=== PATIENT | male | born 1950 | race Caucasian/White ===

== ENCOUNTER → 2016-11-02 | Outpatient (CLI) | payer MEDICARE ==
[2016-11-02 16:26] LABS: Lyme IgG/IgM Interp NEGATIVE (NEGATIVE)
== END | disposition home or self-care (01) ==
LOC: LABWHC1 10:53
PROVIDERS: ATTEND Psychiatry & Neurology Neurology
DX: R41.3 Other amnesia (principal)
CPT/HCPCS: 36415; 82306; 82607; 82746; 86618

== ENCOUNTER 2019-01-11 11:29 | Day surgery (SDC) | payer MEDICARE ==
[2019-01-09 15:24] VITALS: BMI 27.0
[~2019-01-11 11:29] MED LIST: LACTATED RINGERS 1,000 ML IV SCH
[2019-01-11 12:40] VITALS: TEMP 98.1
[2019-01-11] MEDS ORDERED: GLYCOPYRROLATE 0.2 MG/ML 2 ML VIAL ONE (13:33)
[2019-01-11] MEDS ORDERED: LIDOCAINE 1% INJ 10MG/ML (20 ML MDV) ONE (13:33)
[2019-01-11] MEDS ORDERED: PROPOFOL 10 MG/ML 20 ML VIAL IV ONE (13:33)
--- NOTE | 2019-01-11 14:04 | P.PCN ---
Date of Procedure: 01/11/19 Procedure(s) Performed: Brief history: Patient is a pleasant 68-year-old white male, scheduled for an elective upper endoscopy as well as colonoscopy as a part of evaluation of intermittent dysphagia to solids and prior history of colon polyps. Procedure performed: Esophagogastroduodenoscopy with biopsy Colonoscopy Preoperative diagnosis: Intermittent dysphagia to solids History of colon polyps Anesthesia: MAC Procedure: After informed consent was obtained from the patient was brought into the endo scopy unit and IV sedation was administered by anesthesia under continuous monitoring. Initially upper endoscopy was done. The Olympus GF 160 video endoscope was inserted inserted into the mouth and esophagus intubated without any difficulty and was gradually advanced into the stomach and duodenum and carefully examined. Biopsies were done from the duodenum to rule out celiac disease. The bulb and second part of the duodenum appeared normal. The scope was then withdrawn into the stomach adequately insufflated with air and upon careful examination the antrum had mild gastritis and biopsies were done from this area. The body, cardia and fundus appeared normal. The scope was then withdrawn into the esophagus. The GE junction was located at 40 cm to the incisors. It appeared regular with superficial erosions consistent with LA grade a reflux esophagitis. Rest of the esophagus appeared normal. no evidence of esophageal stricture. Patient tolerated the procedure well. At this time the patient continued to remain sedation. Initial digital rectal examination was normal. Olympus CF 160 video colonoscope was then inserted into the rectum and gradually advanced to the cecum without any difficulty. Careful examination was performed as the scope was gradually being withdrawn. The prep was excellent. In the base of the cecum there was a 5 mm sessile polyp that was removed by snare polypectomy. The cecum, ascending colon, transverse colon, descending colon, sigmoid colon and rectum appeared normal. Retroflexion was performed in the rectum and no lesions were noted. Patient tolerated the procedure well. Impression: 1. Upper endoscopy revealed mild antral gastritis as well as duodenitis and LA grade A reflux esophagitis 2. Colonoscopy revealed 5 mm cecal polyp status post polypectomy Recommendations: Findings of this examination were discussed with the patient as well as his family. He was advised to follow with the biopsy results. If the biopsy shows an adenoma he can have a repeat colonoscopy in 5 years.
[2019-01-11 14:24] VITALS: BP 133/78; PULSE 53; RESP 16
== END 2019-01-11 14:48 | disposition home or self-care (01) ==
LOC: ORWHC2ENDO 11:29
PROVIDERS: ATTEND Internal Medicine Gastroenterology
DX: Z12.11 Encounter for screening for malignant neoplasm of colon (principal); D12.0 Benign neoplasm of cecum; K29.50 Unspecified chronic gastritis without bleeding; K29.80 Duodenitis without bleeding; R13.10 Dysphagia, unspecified; Z86.010 Personal history of colon polyps; R41.3 Other amnesia; Z79.899 Other long term (current) drug therapy
CPT/HCPCS: 88305; 45385; 43239; J2001; J2704

== ENCOUNTER → 2019-10-16 | Outpatient (CLI) | payer MEDICARE ==
--- NOTE | 2019-10-16 15:41 | CONS ---
CONSULTATION A 69-year-old gentleman who has been evaluated in the [facility] for symptoms of dementia and possible obstructive sleep apnea-hypopnea syndrome. HISTORY OF PRESENT ILLNESS/SLEEP-WAKE EVALUATION: Patient's usual sleep schedule from 11 p.m. to 8 a.m. No problems with falling asleep. No TV in bedroom. He sleeps in different positions, but according to , he sleeps better if he sleeps up. He has mild snoring. No history of hypnagogic hallucinations, sleep paralysis or cataplexy. During the day, patient may feel tiredness and sleepiness. [place] Sleepiness Scale increased to 11. Sometimes according to his , he is sitting still, so she does not know if he is sleeping or if he is awake. 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 PAST SURGICAL HISTORY: Bilateral shoulder surgery also visual problems. SOCIAL HISTORY: Negative for using illicit drug, alcohol, or smoking. MEDICATIONS: , donepezil, multivitamin, D3 supplement. REVIEW OF SYSTEMS: Difficulties to write and read, episodes of tiredness, snoring. PHYSICAL EXAM: gentleman without distress. BP 122/76, HR 50, RR 16, height 5, 7, weight 167, body mass index 26.1, temperature 98.3, oxygen saturation at room air 96%. OROPHARYNX: Moderately low position of soft palate. NECK: Supple, no JVD. Thyroid is not palpable. LUNGS: Clear to percussion and to auscultation. Good air exchange. No wheezing or rhonchi. HEART: S1, S2 regular. No murmurs, gallops, or rubs. ABDOMEN: Soft and nontender. Bowel sounds are present. No organomegaly appreciated. EXTREMITIES: No clubbing or cyanosis. TUB MENDER: Awake, alert, and oriented X3. Cranial nerves 2 to 7 intact. There is no fasciculation or atrophy. noted. No focal deficits observed. IMPRESSION: 1. Snoring, moderately low position of soft palate, episodes of daytime sleepiness. [place] Sleepiness Scale increased to 11. Possible obstructive sleep apnea- hypopnea syndrome. 2. History of dementia with problems of writing, reading, and some daytime activities including work outside. 3. Visual problems. 4. Status post bilateral shoulder surgery. PLAN: 1. Polysomnography for evaluation of patient's breathing during sleep. 2. CPAP/BiPAP titration if sleep study confirms obstructive sleep apnea-hypopnea syndrome. 3. Preferable position during sleep on the side. 4. No driving if patient feels any sleepiness. 5. I will see patient for follow up visit to explain results of testing and following plan. Thank you very much for referring this patient for consultation. Sincerely, Hank Francois MD, PhD, FAASM Diplomat of [place] [employer] [place] [employer] [facility] [place]. MMODL / IJN: [id number] /
== END | disposition home or self-care (01) ==
LOC: SLEEP 10:26
PROVIDERS: ATTEND Internal Medicine
DX: R06.83 Snoring (principal); Z86.59 Personal history of other mental and behavioral disorders; H53.9 Unspecified visual disturbance; Z98.890 Other specified postprocedural states; Z79.899 Other long term (current) drug therapy
CPT/HCPCS: 99211

== ENCOUNTER 2021-05-08 13:22 | Emergency (ER) | payer MEDICARE ==
[2021-05-08] MEDS ORDERED: ACETAMINOPHEN TAB 500 MG TAB PO PRN (13:50)
[2021-05-08] MEDS ORDERED: ACETAMINOPHEN TAB 500 MG TAB PO STA (13:50)
--- NOTE | 2021-05-08 13:59 | ED ---
General Adult HPI - General Chief complaint: Weakness Stated complaint: Upper Respiratory Infection,Body Aches Time Seen by Provider: 05/08/21 13:33 Source: patient, RN notes reviewed Mode of arrival: ambulatory Limitations: no limitations - History of Present Illness Initial comments: Patient is a pleasant 70-year-old male presenting to the emergency Department with complaints of fatigue. Onset of symptoms was around a week ago. Patient is a poor historian. Patient admits to having cough. Patient believes he has had fevers. Patient does have nasal congestion. Patient has loss of taste and small. Patient has been vaccinated. - Related Data Home Medications Medication Instructions Recorded Confirmed Donepezil [Aricept] 10 mg PO DAILY 01/09/19 01/11/19 Ergocalciferol [Vitamin D2] 50,000 unit PO MO 01/09/19 01/11/19 Memantine [Namenda] 10 mg PO DAILY 01/09/19 01/11/19 Allergies Allergy/AdvReac Type Severity Reaction Status Date / Time No Known Allergies Allergy Verified 05/08/21 13:30 Review of Systems ROS Statement: Those systems with pertinent positive or pertinent negative responses have been documented in the HPI. ROS Other: All systems not noted in ROS Statement are negative. Constitutional: Denies: fever Eyes: Denies: eye pain ENT: Reports: congestion. Denies: ear pain Respiratory: Reports: cough Cardiovascular: Denies: chest pain Endocrine: Reports: fatigue Gastrointestinal: Denies: abdominal pain Genitourinary: Denies: dysuria Musculoskeletal: Denies: back pain Skin: Denies: rash Past Medical History Past Medical History: Memory Impairment History of Any Multi-Drug Resistant Organisms: None Reported Past Surgical History: Orthopedic Surgery Additional Past Surgical History / Comment(s): BILAT SHOULDER SX. COLONOSCOPY/EGD Past Anesthesia/Blood Transfusion Reactions: No Reported Reaction Past Psychological History: No Psychological Hx Reported Smoking Status: Never smoker Past Alcohol Use History: Occasional Past Drug Use History: None Reported - Past Family History Mother Family Medical History: No Reported History General Exam Limitations: no limitations General appearance: alert, in no apparent distress Head exam: Present: normocephalic Eye exam: Present: normal appearance Neck exam: Present: normal inspection Respiratory exam: Present: normal lung sounds bilaterally Cardiovascular Exam: Present: regular rate, normal rhythm GI/Abdominal exam: Present: soft. Absent: tenderness Extremities exam: Present: normal inspection. Absent: pedal edema, calf tenderness Neurological exam: Present: alert Psychiatric exam: Present: normal affect, normal mood Skin exam: Present: normal color Course Vital Signs 05/08/21 13:25 Temperature 99.9 F H Pulse Rate 74 Respiratory 24 Rate Blood Pressure 107/78 O2 Sat by Pulse 95 Oximetry Medical Decision Making - Medical Decision Making Patient revaluate her. Patient and family updated. Patient is candidate for monoclonal antibodies and will receive this. A jung and Family is otherwise comfortable with discharge home. - Lab Data Result diagrams: 05/08/21 14:03 05/08/21 14:03 Lab Results 05/08/21 05/08/21 05/08/21 Range/Units 14:03 14:03 14:03 WBC 12.1 H (3.8-10.6) k/uL RBC 4.89 (4.30-5.90) m/uL Hgb 16.3 (13.0-17.5) gm/dL Hct 47.9 (39.0-53.0) % MCV 97.9 (80.0-100.0) fL MCH 33.4 (25.0-35.0) pg MCHC 34.1 (31.0-37.0) g/dL RDW 12.5 (11.5-15.5) % Plt Count 243 (150-450) k/uL MPV 7.9 Neutrophils % 88 % Lymphocytes % 7 % Monocytes % 3 % Eosinophils % 0 % Basophils % 0 % Neutrophils # 10.6 H (1.3-7.7) k/uL Lymphocytes # 0.9 L (1.0-4.8) k/uL Monocytes # 0.4 (0-1.0) k/uL Eosinophils # 0.0 (0-0.7) k/uL Basophils # 0.0 (0-0.2) k/uL PT 10.6 (9.0-12.0) sec INR 1.0 (<1.2) APTT 25.0 (22.0-30.0) sec Sodium 136 L (137-145) mmol/L Potassium 4.1 (3.5-5.1) mmol/L Chloride 104 (98-107) mmol/L Carbon Dioxide 24 (22-30) mmol/L Anion Gap 8 mmol/L BUN 13 (9-20) mg/dL Creatinine 0.71 (0.66-1.25) mg/dL Est GFR (CKD-EPI)AfAm >90 (>60 ml/min/1.73 sqM) Est GFR (CKD-EPI)NonAf >90 (>60 ml/min/1.73 sqM) Glucose 126 H (74-99) mg/dL Plasma Lactic Acid Harvey (0.7-2.0) mmol/L Calcium 9.5 (8.4-10.2) mg/dL Magnesium 1.9 (1.6-2.3) mg/dL Total Bilirubin 0.8 (0.2-1.3) mg/dL AST 24 (17-59) U/L ALT 18 (4-49) U/L Alkaline Phosphatase 103 (38-126) U/L Lactate Dehydrogenase 352 (313-618) U/L C-Reactive Protein 3.8 H (<1.0) mg/dL Total Protein 6.8 (6.3-8.2) g/dL Albumin 4.2 (3.5-5.0) g/dL Coronavirus (PCR) (Not Detectd) Influenza Type A RNA (Not Detectd) Influenza Type B (PCR) (Not Detectd) 05/08/21 05/08/21 05/08/21 Range/Units 14:03 14:03 14:03 WBC (3.8-10.6) k/uL RBC (4.30-5.90) m/uL Hgb (13.0-17.5) gm/dL Hct (39.0-53.0) % MCV (80.0-100.0) fL MCH (25.0-35.0) pg MCHC (31.0-37.0) g/dL RDW (11.5-15.5) % Plt Count (150-450) k/uL MPV Neutrophils % % Lymphocytes % % Monocytes % % Eosinophils % % Basophils % % Neutrophils # (1.3-7.7) k/uL Lymphocytes # (1.0-4.8) k/uL Monocytes # (0-1.0) k/uL Eosinophils # (0-0.7) k/uL Basophils # (0-0.2) k/uL PT (9.0-12.0) sec INR (<1.2) APTT (22.0-30.0) sec Sodium (137-145) mmol/L Potassium (3.5-5.1) mmol/L Chloride (98-107) mmol/L Carbon Dioxide (22-30) mmol/L Anion Gap mmol/L BUN (9-20) mg/dL Creatinine (0.66-1.25) mg/dL Est GFR (CKD-EPI)AfAm (>60 ml/min/1.73 sqM) Est GFR (CKD-EPI)NonAf (>60 ml/min/1.73 sqM) Glucose (74-99) mg/dL Plasma Lactic Acid Harvey 1.3 (0.7-2.0) mmol/L Calcium (8.4-10.2) mg/dL Magnesium (1.6-2.3) mg/dL Total Bilirubin (0.2-1.3) mg/dL AST (17-59) U/L ALT (4-49) U/L Alkaline Phosphatase (38-126) U/L Lactate Dehydrogenase (313-618) U/L C-Reactive Protein (<1.0) mg/dL Total Protein (6.3-8.2) g/dL Albumin (3.5-5.0) g/dL Coronavirus (PCR) Detected A (Not Detectd) Influenza Type A RNA Not Detected (Not Detectd) Influenza Type B (PCR) Not Detected (Not Detectd) - Radiology Data Radiology results: image reviewed (Chest x-ray shows probable fibrosis. No focal infiltrate.) Disposition Clinical Impression: COVID-19 Disposition: HOME SELF-CARE Condition: Stable Instructions (If sedation given, give patient instructions): Coronavirus Disease 2019 (COVID-19) Additional Instructions: [id number] vitamin C, vitamin D, and zinc. Methadone at bedtime. Tylenol as he is for fever. Return for difficulty breathing, not tolerating fluids, worsening symptoms or other concerns. Is patient prescribed a controlled substance at d/c from ED?: No Referrals: Ras Ames MD [Primary Care Provider] - 1-2 days Time of Disposition: 15:07
--- NOTE | 2021-05-08 14:07 | XR ---
EXAMINATION TYPE: XR chest 1V portable DATE OF EXAM: 05/08/2021 COMPARISON: NONE HISTORY: Coughing and shortness of breath TECHNIQUE: Single AP portable frontal upright view of the chest is obtained. FINDINGS: There is reticular interstitial change bilaterally greater in the lower lungs. The cardia c silhouette size is within upper limits of normal. The osseous structures are intact. IMPRESSION: Reticular interstitial changes favor mild to moderate parenchymal fibrosis. No suspiciou s focal infiltrate clearly seen.
[2021-05-08 14:28] LABS: ALT 18 U/L (4-49); AST 24 U/L (17-59); African American GFR (CKD) >90 (>60 ml/min/1.73 sqM); Albumin 4.2 g/dL (3.5-5.0); Alkaline Phosphatase 103 U/L (38-126); Anion Gap 8 mmol/L; Blood Urea Nitrogen 13 mg/dL (9-20); C Reactive Protein 3.8 mg/dL (<1.0); Calcium 9.5 mg/dL (8.4-10.2); Carbon Dioxide 24 mmol/L (22-30); Chloride 104 mmol/L (98-107); Glucose 126 mg/dL (74-99); LDH 352 U/L (313-618); Magnesium 1.9 mg/dL (1.6-2.3); Non-African American GFR(CKD) >90 (>60 ml/min/1.73 sqM); Potassium 4.1 mmol/L (3.5-5.1); Sodium 136 mmol/L (137-145); Total Bilirubin 0.8 mg/dL (0.2-1.3); Total Protein 6.8 g/dL (6.3-8.2)
[2021-05-08 14:29] LABS: Basophils % (A) 0 %; Eosinophils % (A) 0 %; HCT 47.9 % (39.0-53.0); HGB 16.3 gm/dL (13.0-17.5); Lymphocytes # (A) 0.9 k/uL (1.0-4.8); Lymphocytes % (A) 7 %; MCH 33.4 pg (25.0-35.0); MCHC 34.1 g/dL (31.0-37.0); MCV 97.9 fL (80.0-100.0); Mean Platelet Volume 7.9; Monocytes # (A) 0.4 k/uL (0-1.0); Monocytes % (A) 3 %; Neutrophils # (A) 10.6 k/uL (1.3-7.7); Neutrophils % (A) 88 %; Platelet Count 243 k/uL (150-450); RBC 4.89 m/uL (4.30-5.90); RDW 12.5 % (11.5-15.5); WBC 12.1 k/uL (3.8-10.6)
[2021-05-08 14:31] LABS: Prothrombin Time 10.6 sec (9.0-12.0)
[2021-05-08] MEDS ORDERED: CASIRIVIMAB (REGN10933) (EUA) 600 MG, IMDEVIMAB (REGN10987) (EUA) 600 MG in SODIUM CHLO... IVPB ONE (17:30)
[2021-05-08] MEDS ORDERED: SODIUM CHLORIDE 0.9% 50 ML IVPB ONE (17:30)
[2021-05-08 18:29] VITALS: RESP 18
[2021-05-08 18:37] VITALS: BP 123/81; PULSE 69; TEMP 97.6
== END 2021-05-08 19:40 | disposition home or self-care (01) ==
LOC: EC 13:22
DX: U07.1 COVID-19 (principal)
CPT/HCPCS: 99285; 36415; 93005; 80053; 82728; 83605; 83615; 83735; 85025; 85610; 85730; 86140; 87502; 84145; 87635; 71045; Q0244

== ENCOUNTER → 2021-08-09 | Outpatient (CLI) | payer MEDICARE ==
--- NOTE | 2021-08-09 12:43 | US ---
EXAMINATION TYPE: US bladder DATE OF EXAM: 08/09/2021 COMPARISON: NONE CLINICAL HISTORY: R31.9 HEMATURIA, UNSPECIFIED. hematuria EXAM MEASUREMENTS: Post Void Residual Volume: patient unable to void Color Doppler performed to assess ureteral jets. Bilateral Jets seen: no IMPRESSION: patient unable to void
== END | disposition home or self-care (01) ==
LOC: RADUSWWP 11:58
PROVIDERS: ATTEND Family Medicine
DX: R31.9 Hematuria, unspecified (principal)
CPT/HCPCS: 76857

== ENCOUNTER 2021-08-14 16:20 | Observation (INO) | payer MEDICARE ==
--- NOTE | 2021-08-14 16:47 | ED ---
General Adult HPI - General Chief complaint: Syncope Stated complaint: passing out Time Seen by Provider: 08/14/21 16:25 Source: patient, RN notes reviewed, old records reviewed Mode of arrival: ambulatory Limitations: no limitations - History of Present Illness Initial comments: This is a 71-year-old male who presents emergency Department states he passed on the bathroom this morning then went shopping with his and then passed out while standing in line per patient states he had no chest pain palpitations difficulty breathing shortness of breath per patient denies any fever chills or cough per patient states he has not had a history of any bradycardia in the past. Patient denies any abdominal pain. Patient any recent nausea vomiting or diarrhea. Patient denies being lightheaded now. Patient states now while lying in bed he has no symptoms whatsoever. - Related Data Home Medications Medication Instructions Recorded Confirmed Donepezil [Aricept] 10 mg PO DAILY 01/09/19 08/14/21 Memantine [Namenda] 10 mg PO BID 01/09/19 08/14/21 Cholecalciferol [Vitamin D3 (25 25 mcg PO MO 05/13/21 08/14/21 Mcg = 1000 Iu)] Fish Oil/Dha/Epa [Fish Oil 1,200 1 cap PO DAILY 05/13/21 08/14/21 mg Fish Oil] Ginkgo Biloba Bisbee Extract [Ginkgo] 120 mg PO DAILY 05/13/21 08/14/21 Sertraline [Zoloft] 50 mg PO DAILY 08/14/21 08/14/21 levETIRAcetam [Keppra] 500 mg PO Q12HR 08/14/21 08/14/21 Allergies Allergy/AdvReac Type Severity Reaction Status Date / Time No Known Allergies Allergy Verified 08/14/21 17:23 Review of Systems ROS Statement: Those systems with pertinent positive or pertinent negative responses have been documented in the HPI. ROS Other: All systems not noted in ROS Statement are negative. Past Medical History Past Medical History: Memory Impairment History of Any Multi-Drug Resistant Organisms: None Reported Past Surgical History: Orthopedic Surgery Additional Past Surgical History / Comment(s): BILAT SHOULDER SX. COLONOSCOPY/EGD Past Anesthesia/Blood Transfusion Reactions: No Reported Reaction Past Psychological History: No Psychological Hx Reported Smoking Status: Never smoker Past Alcohol Use History: Occasional Past Drug Use History: None Reported - Past Family History Mother Family Medical History: No Reported History General Exam - General Exam Comments Initial Comments: GENERAL: Patient is well-developed and well-nourished. Patient is nontoxic and well- hydrated and is in no acute distress. ENT: Neck is soft and supple. No significant lymphadenopathy is noted. Oropharynx is clear. Moist mucous membranes. Neck has full range of motion without eliciting any pain. EYES: The sclera were anicteric and conjunctiva were pink and moist. Extraocular movements were intact and pupils were equal round and reactive to light. Eyelids were unremarkable. PULMONARY: Unlabored respirations. Good breath sounds bilaterally. No audible rales rhonchi or wheezing was noted. CARDIOVASCULAR: Heart rate is about 40 bpm and bradycardic ABDOMEN: Soft and nontender with normal bowel sounds. SKIN: Skin is clear with no lesions or rashes and otherwise unremarkable. NEUROLOGIC: Patient is alert and oriented x3. Cranial nerves II through XII are grossly intact. Motor and sensory are also intact. Normal speech, volume and content. Symmetrical smile. MUSCULOSKELETAL: Normal extremities with adequate strength and full range of motion. No lower extremity swelling or edema. No calf tenderness. LYMPHATICS: No significant lymphadenopathy is noted PSYCHIATRIC: Normal psychiatric evaluation. Limitations: no limitations Course Vital Signs 08/14/21 08/14/21 16:23 16:55 Temperature 98 F Pulse Rate 44 L Pulse Rate [ 47 L Right Sitting] Pulse Rate [ 54 L Right Standing] Pulse Rate [ 46 L Right Supine] Respiratory 20 18 Rate Blood Pressure 165/94 Blood Pressure 146/95 [Left Arm Sitting] Blood Pressure 130/90 [Left Arm Standing] Blood Pressure 150/91 [Left Arm Supine] O2 Sat by Pulse 96 99 Oximetry Medical Decision Making - Medical Decision Making EKG shows sinus bradycardia at 43 bpm FL interval 292 QRS is under 2 QT interval is 485 QTC is 429. Patient's EKG shows no ST segment elevation or depression. Chest x-ray shows no acute abnormality. Patient was borderline orthostatic. Patient's heart rate remained in the 40s throughout his ED stay. I spoke with sounds physician's and he agreed to accept the patient I consult cardiology - Lab Data Result diagrams: 08/14/21 16:53 08/14/21 16:53 Lab Results 08/14/21 08/14/21 08/14/21 Range/Units 16:53 16:53 16:53 WBC 6.6 (3.8-10.6) k/uL RBC 5.22 (4.30-5.90) m/uL Hgb 17.2 (13.0-17.5) gm/dL Hct 52.1 (39.0-53.0) % MCV 99.7 (80.0-100.0) fL MCH 32.9 (25.0-35.0) pg MCHC 33.0 (31.0-37.0) g/dL RDW 12.3 (11.5-15.5) % Plt Count 230 (150-450) k/uL MPV 8.0 Neutrophils % 63 % Lymphocytes % 27 % Monocytes % 6 % Eosinophils % 3 % Basophils % 1 % Neutrophils # 4.1 (1.3-7.7) k/uL Lymphocytes # 1.8 (1.0-4.8) k/uL Monocytes # 0.4 (0-1.0) k/uL Eosinophils # 0.2 (0-0.7) k/uL Basophils # 0.0 (0-0.2) k/uL PT 11.0 (9.0-12.0) sec INR 1.0 (<1.2) APTT 24.4 (22.0-30.0) sec Sodium 138 (137-145) mmol/L Potassium 4.3 (3.5-5.1) mmol/L Chloride 102 (98-107) mmol/L Carbon Dioxide 30 (22-30) mmol/L Anion Gap 6 mmol/L BUN 7 L (9-20) mg/dL Creatinine 0.79 (0.66-1.25) mg/dL Est GFR (CKD-EPI)AfAm >90 (>60 ml/min/1.73 sqM) Est GFR (CKD-EPI)NonAf >90 (>60 ml/min/1.73 sqM) Glucose 103 H (74-99) mg/dL Calcium 9.2 (8.4-10.2) mg/dL Magnesium 2.1 (1.6-2.3) mg/dL Total Bilirubin 0.8 (0.2-1.3) mg/dL AST 22 (17-59) U/L ALT 12 (4-49) U/L Alkaline Phosphatase 82 (38-126) U/L Troponin I (0.000-0.034) ng/mL Total Protein 7.5 (6.3-8.2) g/dL Albumin 4.5 (3.5-5.0) g/dL 08/14/21 Range/Units 16:53 WBC (3.8-10.6) k/uL RBC (4.30-5.90) m/uL Hgb (13.0-17.5) gm/dL Hct (39.0-53.0) % MCV (80.0-100.0) fL MCH (25.0-35.0) pg MCHC (31.0-37.0) g/dL RDW (11.5-15.5) % Plt Count (150-450) k/uL MPV Neutrophils % % Lymphocytes % % Monocytes % % Eosinophils % % Basophils % % Neutrophils # (1.3-7.7) k/uL Lymphocytes # (1.0-4.8) k/uL Monocytes # (0-1.0) k/uL Eosinophils # (0-0.7) k/uL Basophils # (0-0.2) k/uL PT (9.0-12.0) sec INR (<1.2) APTT (22.0-30.0) sec Sodium (137-145) mmol/L Potassium (3.5-5.1) mmol/L Chloride (98-107) mmol/L Carbon Dioxide (22-30) mmol/L Anion Gap mmol/L BUN (9-20) mg/dL Creatinine (0.66-1.25) mg/dL Est GFR (CKD-EPI)AfAm (>60 ml/min/1.73 sqM) Est GFR (CKD-EPI)NonAf (>60 ml/min/1.73 sqM) Glucose (74-99) mg/dL Calcium (8.4-10.2) mg/dL Magnesium (1.6-2.3) mg/dL Total Bilirubin (0.2-1.3) mg/dL AST (17-59) U/L ALT (4-49) U/L Alkaline Phosphatase (38-126) U/L Troponin I <0.012 (0.000-0.034) ng/mL Total Protein (6.3-8.2) g/dL Albumin (3.5-5.0) g/dL Disposition Clinical Impression: Bradycardia, Syncope and collapse Disposition: ADMITTED IP TO THIS HOSP Referrals: Oscar Ames MD [REFERRING] - 1-2 days Time of Disposition: 17:43
[2021-08-14 17:07] LABS: Basophils % (A) 1 %; Eosinophils # (A) 0.2 k/uL (0-0.7); Eosinophils % (A) 3 %; HCT 52.1 % (39.0-53.0); HGB 17.2 gm/dL (13.0-17.5); Lymphocytes # (A) 1.8 k/uL (1.0-4.8); Lymphocytes % (A) 27 %; MCH 32.9 pg (25.0-35.0); MCV 99.7 fL (80.0-100.0); Monocytes # (A) 0.4 k/uL (0-1.0); Monocytes % (A) 6 %; Neutrophils # (A) 4.1 k/uL (1.3-7.7); Neutrophils % (A) 63 %; Platelet Count 230 k/uL (150-450); RBC 5.22 m/uL (4.30-5.90); RDW 12.3 % (11.5-15.5); WBC 6.6 k/uL (3.8-10.6)
[2021-08-14 17:12] LABS: Potassium 4.3 mmol/L (3.5-5.1)
[2021-08-14 17:13] LABS: ALT 12 U/L (4-49); AST 22 U/L (17-59); African American GFR (CKD) >90 (>60 ml/min/1.73 sqM); Albumin 4.5 g/dL (3.5-5.0); Alkaline Phosphatase 82 U/L (38-126); Anion Gap 6 mmol/L; Blood Urea Nitrogen 7 mg/dL (9-20); Calcium 9.2 mg/dL (8.4-10.2); Carbon Dioxide 30 mmol/L (22-30); Chloride 102 mmol/L (98-107); Glucose 103 mg/dL (74-99); Magnesium 2.1 mg/dL (1.6-2.3); Non-African American GFR(CKD) >90 (>60 ml/min/1.73 sqM); Sodium 138 mmol/L (137-145); Total Bilirubin 0.8 mg/dL (0.2-1.3); Total Protein 7.5 g/dL (6.3-8.2)
[2021-08-14 17:20] LABS: Partial Thromboplastin Time 24.4 sec (22.0-30.0)
--- NOTE | 2021-08-14 17:33 | XR ---
EXAMINATION TYPE: XR chest 2V DATE OF EXAM: 08/14/2021 COMPARISON: 05/13/2021 HISTORY: Syncope TECHNIQUE: 2 views FINDINGS: There is no heart failure nor confluent pneumonic infiltrate. There is calcified granulomat a in the mediastinum. There are no hilar masses. Bony thorax is intact. There is no pleural effusion. There is some linear density in the left lower lobe. IMPRESSION: There is some mild scarring and atelectasis left lower lobe without change.. Old granulom atous disease.
[2021-08-14] MEDS ORDERED: NITROGLYCERIN SL TABS 0.4 MG TAB SUBLINGUAL PRN (17:45)
--- NOTE | 2021-08-15 03:08 | P.HPIM ---
History of Present Illness H&P Date: 08/14/21 Chief Complaint: Syncope 71-year-old male with dementia Patient unable to provide any meaningful history. Per ED notes patient has been having frequent episodes of syncope at 2 today 1 when he was in the bathroom the other one when out shopping. Patient doesn't recall these events denies any energy injury after. He denies any history of heart disease or stroke. Patient is on Keppra as wasn't able to give me a clear answer whether he has history of seizures. In the ED blood work overall was unremarkable, imaging showed no acute pathology, EKG showed no acute ST changes Patient remained bradycardic while in the ED with a heart rate in the 40s for which she is admitted for cardiology evaluation Review of Systems ROS unobtainable: due to mental status Past Medical History Past Medical History: Memory Impairment History of Any Multi-Drug Resistant Organisms: None Reported Past Surgical History: Orthopedic Surgery Additional Past Surgical History / Comment(s): BILAT SHOULDER SX. COLONOSCOPY/EGD Past Anesthesia/Blood Transfusion Reactions: No Reported Reaction Past Psychological History: No Psychological Hx Reported Smoking Status: Never smoker Past Alcohol Use History: Occasional Past Drug Use History: None Reported - Past Family History Mother Family Medical History: No Reported History Medications and Allergies Home Medications Medication Instructions Recorded Confirmed Type Donepezil [Aricept] 10 mg PO DAILY 01/09/19 08/14/21 History Memantine [Namenda] 10 mg PO BID 01/09/19 08/14/21 History Cholecalciferol [Vitamin D3 (25 25 mcg PO MO 05/13/21 08/14/21 History Mcg = 1000 Iu)] Fish Oil/Dha/Epa [Fish Oil 1,200 1 cap PO DAILY 05/13/21 08/14/21 History mg Fish Oil] Ginkgo Biloba [place] Extract [Ginkgo] 120 mg PO DAILY 05/13/21 08/14/21 History Sertraline [Zoloft] 50 mg PO DAILY 08/14/21 08/14/21 History levETIRAcetam [Keppra] 500 mg PO Q12HR 08/14/21 08/14/21 History Allergies Allergy/AdvReac Type Severity Reaction Status Date / Time No Known Allergies Allergy Verified 08/14/21 17:23 Physical Exam Vitals: Vital Signs Temp Pulse Pulse Pulse Pulse Resp BP 08/14/21 20:00 97.7 F 51 L 18 08/14/21 18:43 48 L 14 08/14/21 18:09 49 L 18 135/90 08/14/21 16:55 47 L 54 L 46 L 18 08/14/21 16:23 98 F 44 L 20 165/94 BP BP BP Pulse Ox 08/14/21 20:00 133/80 96 08/14/21 18:43 155/88 96 08/14/21 18:09 98 08/14/21 16:55 146/95 130/90 150/91 99 08/14/21 16:23 96 Intake and Output 08/14/21 08/14/21 08/15/21 14:59 22:59 06:59 Other: Voiding Method Toilet Urinal # Voids 2 Weight 74.843 kg Constitutional: No acute distress, confused pleasant, follow commands Eyes: Anicteric sclerae, moist conjunctiva, Pupils equal round reactive to light ENMT: NC/AT Oropharynx clear, no erythema, or exudates Neck: Supple, no masses, or JVD No carotid bruits No thyromegaly Lungs: Clear to auscultation Clear to percussion Normal respiratory effort, no accessory muscle use Cardiovascular: Heart regular in rate and rhythm, No murmurs, gallops, or rubs No peripheral edema Abdominal: Soft Nontender, no guarding, rebound or rigidity Abdomen moving with respiration Normoactive bowel sounds No hepatomegaly, No splenomegaly No palpable mass No abdominal wall hernia noted Skin: Normal temperature, tone, texture, turgor No induration No subcutaneous nodules No rash, lesions No ulcers Extremities: No digital cyanosis No clubbing Pedal pulses intact and symmetrical Radial pulses intact and symmetrical No calf tenderness Psychiatric: Alert and oriented to person only Neuro Muscles Strength 5/5 in all 4 extremities Sensation to light touch grossly present throughout Cranial nerves II-XII grossly intact No focal sensory deficits Lymphatics: no palpable cervical or supraclavicular , or inguinal lymph nodes Results CBC & Chem 7: 08/14/21 16:53 08/14/21 16:53 Labs: Abnormal Lab Results - Last 24 Hours (Table) 08/14/21 Range/Units 16:53 BUN 7 L (9-20) mg/dL Glucose 103 H (74-99) mg/dL Assessment and Plan Assessment: Symptomatic bradycardia Multiple syncopal episodes Cardiac monitoring IV fluid hydration normal saline Avoid AV duglas maria de jesus agent Cardiology evaluation Follow-up labs in the morning Fall precautions CODE STATUS patient was able to discuss DVT prophylaxis heparin subcu 3 times a day Anticipated length of stay less than 2 midnights
[2021-08-15] MEDS: MEMANTINE 10 MG TAB PO SCH ×3 (03:12→19:54)
[2021-08-15] MEDS: levETIRAcetam 500 MG TAB PO SCH ×3 (03:12→19:54)
[2021-08-15] MEDS: SODIUM CHLORIDE 0.9% 1,000 ML IV SCH ×2 (08:32→12:04)
[2021-08-15] MEDS: SERTRALINE 50 MG TAB PO SCH (08:36)
[2021-08-15] MEDS: HEPARIN SODIUM,PORCINE/PF 5,000 UNIT/0.5 ML SYRINGE SQ SCH ×2 (08:36→19:54)
[2021-08-15] MEDS ORDERED: ASPIRIN 325 MG TAB PO SCH (09:00)
[2021-08-15] MEDS ORDERED: DONEPEZIL 10 MG TAB PO SCH (09:00)
[2021-08-15] MEDS ORDERED: RX INFO: IV CONTRAST WAS GIVEN 1 EACH MISC MISCELLANE PRN (10:17)
--- NOTE | 2021-08-15 10:36 | CONS ---
CONSULTATION Emeterio Anderson is a 71-year-old gentleman from whom I cannot obtain any meaningful history. This gentleman has probably underlying dementia. He was admitted to the hospital with a question of having some low heart rate. He presented to the emergency room yesterday evening after having had a near-syncopal episode in the bathroom and then went shopping with his and was standing in the line and he felt difficulty breathing. All these symptoms are in the chart, but on questioning, patient is unable to conform anything. He has a heart rate of about 45 beats per minute, the lowest that I saw, and the heart rate now is 72, but he does have underlying right bundle suggesting that he has significant conduction system disease. He is asymptomatic at the time of my evaluation, resting comfortably without any chest pain, shortness of breath or palpitations. Past medical history: significant amount of dementia, and patient is absolutely confused. He may have some underlying seizure disorder as well. No documented evidence of any CAD, hypertension, myocardial infarction or CVA. Medications at home include Keppra, Namenda, Aricept and some fish oil. On examination, blood pressure is 130/70. Pulse rate is about 70 per minute, regular. HEENT unremarkable. Fundus was not examined by me. Neck is supple. No JVD. I do not hear a carotid bruit. Heart exam reveals S1, S2 with a short systolic murmur. Lungs reveal diminished air entry. Abdomen is soft. Lower extremities reveal normal pulses, no edema. Central nervous system does not reveal focal motor deficits, but I did not do a detailed examination. IMPRESSION: 1. Question of near-syncope in a patient with right bundle branch block pattern, sinus mechanism, but no documented evidence of syncope or significant bradycardia here. 2. Severe dementia. 3. Probable underlying seizure disorder. RECOMMENDATIONS: I am recommending that we check thyroid function tests, continue telemetry monitoring, obtain echocardiogram and seek further input from Neurology as well. Based on his clinical picture and telemetry monitoring, we will make further recommendations. Discussed my thoughts in detail with the patient. MMFLOL / IJN: [id number] /
--- NOTE | 2021-08-15 13:19 | P.PN ---
Subjective Progress Note Date: 08/15/21 (delayed charting seen at 0945) Principal diagnosis: syncope Patient is a 71-year-old gentleman with dementia, prior history of COVID, and probable seizure disorder who presented after 2 syncopal episodes. In the ER he was found to be bradycardic. Remainder of his laboratory analysis were within normal limits. TSH and troponins were normal. EKG demonstrated a right bundle branch block with sinus bradycardia. Is admitted for further monitoring. Cardiology was consulted. Patient seen and examined at bedside. Unfortunately no family is present and nursing has not been able to get a hold of the . He is alert and oriented to self only. He is unsure why he is in hospital or what happened. All meaningful information was gathered from thorough record review of hospitalization in May 2021 and this ER visit. General: non toxic, no distress, appears at stated age Derm: warm, dry Head: atraumatic, normocephalic, symmetric Eyes: EOMI, no lid lag, anicteric sclera Mouth: no lip lesion, mucus membranes moist Cardiovascular: S1S2 reg, no murmur, positive posterior tibial pulse bilateral, Lungs: CTA bilateral, no rhonchi, no rales , no accessory muscle use Abdominal: soft, nontender to palpation, no guarding, no appreciable organomegaly Ext: no gross muscle atrophy, no edema, no contractures Neuro: CN II-XI grossly intact, no focal neuro deficits Psych: Alert, oriented to self only. Initially thought his is in the room and that he was at home, appropriate affect Assessment/plan: Syncope Bradycardia with right bundle branch block -Continue with telemetry -Cardiology recommendations -Echocardiogram in a.m. -Hold Namenda and Aricept -Check CT head -seizure precautions -keppra level Dementia -Safe and supportive environment -Hold Aricept as it is contraindicated with arrhythmia. Also hold Namenda. Probable seizure disorder -Kera DVT prophylaxis: early ambulation Discussed with: patient, nursing Anticipated discharge: in AM Anticipated discharge place: home A total of 35 minutes was spent on the care of this complex patient more than 50% of the time was spent in counseling and care coordination. Objective - Vital Signs Vital signs: Vital Signs Temp 98.1 F 08/15/21 08:33 Pulse 51 L 08/15/21 11:04 Resp 20 04/17/22 11:04 BP 131/80 08/15/21 11:04 Pulse Ox 99 08/15/21 11:04 Intake & Output 08/14/21 08/15/21 08/15/21 18:59 06:59 18:59 Intake Total 1000 Output Total 400 Balance 1000 -400 Weight 74.843 kg 74.843 kg Intake: Oral 1000 Output: Urine 400 Other: Voiding Method Toilet Toilet Urinal Urinal # Voids 2 1 # Bowel Movements 1 1 - Labs CBC & Chem 7: 08/14/21 16:53 08/14/21 16:53 Labs: Abnormal Lab Results - Last 24 Hours (Table) 08/14/21 Range/Units 16:53 BUN 7 L (9-20) mg/dL Glucose 103 H (74-99) mg/dL
--- NOTE | 2021-08-15 14:06 | CT ---
EXAMINATION TYPE: CT brain wo con DATE OF EXAM: 08/15/2021 COMPARISON: 05/13/2021 HISTORY: Syncope, Fall CT DLP: 1099.4 mGycm Automated exposure control for dose reduction was used. There is cerebral cortical atrophy. There is enlargement of the ventricles. There is no mass effect o r midline shift. There is no sign of intracranial hemorrhage. The calvarium is intact. There is tu l aeration of the mastoid sinuses. IMPRESSION: Cerebral atrophy and moderate hydrocephalus. No acute abnormality. No change compared to old exam. There is clearing of the right maxillary sinusitis compared to old exam.
[2021-08-15 16:37] LABS: Chol/HDL Ratio 4.36 Ratio; LDL Cholesterol,Calculated 156.2 mg/dL (0.0-131.0); VLDL Calculation 18.68 mg/dL (5.00-40.00)
[2021-08-16] MEDS: SODIUM CHLORIDE 0.9% 1,000 ML IV SCH ×2 (01:32→15:39)
[2021-08-16] MEDS: levETIRAcetam 500 MG TAB PO SCH ×2 (07:59→20:22)
[2021-08-16] MEDS: MEMANTINE 10 MG TAB PO SCH ×2 (07:59→20:22)
[2021-08-16] MEDS: SERTRALINE 50 MG TAB PO SCH (07:59)
[2021-08-16] MEDS: HEPARIN SODIUM,PORCINE/PF 5,000 UNIT/0.5 ML SYRINGE SQ SCH ×2 (07:59→20:22)
--- NOTE | 2021-08-16 09:51 | ECHOF ---
Referral Reason:Bradycardia, eval LV FX MEASUREMENTS -------- HEIGHT: 170.2 cm WEIGHT: 74.8 kg BP: 125/79 RVIDd: 2.7 cm (< 3.3) IVSd: 1.1 cm (0.6 - 1.1) LVIDd: 4.4 cm (3.9 - 5.3) LVPWd: 1.0 cm (0.6 - 1.1) IVSs: 2.0 cm LVIDs: 2.5 cm LVPWs: 1.4 cm LA Diam: 2.5 cm (2.7 - 3.8) Ao Diam: 4.0 cm (2.0 - 3.7) AV Cusp: 2.1 cm (1.5 - 2.6) MV EXCURSION: 17.918 mm (> 18.000) MV EF SLOPE: 54 mm/s (70 - 150) EPSS: 0.5 cm MV E Deepak: 0.74 m/s MV DecT: 120 ms MV A Deepak: 0.55 m/s MV E/A Ratio: 1.34 RAP: 5.00 mmHg RVSP: 24.64 mmHg FINDINGS -------- Resting bradycardia (HR<60bpm). This was a technically adequate study. The left ventricular size is normal. There is borderline concentric left ventricular hypertrophy. Overall left ventricular systolic function is normal with, an EF between 60 - 65 %. The right ventricle is normal in size. The left atrium is normal in size. The right atrium is normal in size. Interatrial and interventricular septum intact. There is mild aortic valve sclerosis. Possible bicuspid AOV The mitral valve is normal. Mild tricuspid regurgitation present. Right ventricular systolic pressure is normal at < 35 mmHg. The pulmonic valve is normal. The aortic root is dilated measuring 4.0cm. IVC Not well visulized. There is no pericardial effusion. CONCLUSIONS -------- 1. Resting bradycardia (HR<60bpm). 2. The left ventricular size is normal. 3. There is borderline concentric left ventricular hypertrophy. 4. Overall left ventricular systolic function is normal with, an EF between 60 - 65 %. 5. There is mild aortic valve sclerosis. 6. Possible bicuspid AOV 7. Mild tricuspid regurgitation present. 8. The aortic root is dilated measuring 4.0cm. 9. There is no pericardial effusion. FUSING MACHINE OPERATOR: Jennifer Faustin RDCS
[2021-08-16 13:04] LABS: Glucose,Whole Blood 126 mg/dL (75-99)
--- NOTE | 2021-08-16 16:48 | P.PN ---
Subjective Progress Note Date: 08/16/21 (delayed charting seen at 0930) Principal diagnosis: syncope Patient is a 71-year-old gentleman with dementia, prior history of COVID, and probable seizure disorder who presented after 2 syncopal episodes. In the ER he was found to be bradycardic. Remainder of his laboratory analysis were within normal limits. TSH and troponins were normal. EKG demonstrated a right bundle branch block with sinus bradycardia. Is admitted for further monitoring. Cardiology was consulted. Patient seen and examined at bedside no family present. Patient without complaints, sleeping denies chest pain, shortness of breath, nausea. General: non toxic, no distress, appears at stated age Derm: warm, dry Head: atraumatic, normocephalic, symmetric Eyes: EOMI, no lid lag, anicteric sclera Mouth: no lip lesion, mucus membranes moist Cardiovascular: S1S2 reg, no murmur, positive posterior tibial pulse bilateral, Lungs: CTA bilateral, no rhonchi, no rales , no accessory muscle use Abdominal: soft, nontender to palpation, no guarding, no appreciable organomegaly Ext: no gross muscle atrophy, no edema, no contractures Neuro: CN II-XI grossly intact, no focal neuro deficits Psych: Alert, oriented to self only. Initially thought his is in the room and that he was at home, appropriate affect Assessment/plan: Syncope Bradycardia with right bundle branch block -Continue with telemetry -Cardiology recommendations -Echocardiogram without abnormality - nursing to recheck orthostatic vital signs - walk patient to assess for chronotropic competency -Hold Aricept -CT head negative -seizure precautions -keppra level pending Dementia -Safe and supportive environment -Hold Aricept as it is contraindicated with arrhythmia seizure disorder -Keppra home in AM if no recurrent episode. Patient with what sounds like absence seizures will monitor for 1 additional day. DVT prophylaxis: early ambulation Discussed with: patient, nursing Anticipated discharge: in AM Anticipated discharge place: home A total of 35 minutes was spent on the care of this complex patient more than 50% of the time was spent in counseling and care coordination. Objective - Vital Signs Vital signs: Vital Signs Temp 98.5 F 08/16/21 16:29 Pulse 64 08/16/21 16:29 Resp 16 08/16/21 16:29 BP 106/63 08/16/21 16:29 Pulse Ox 96 08/16/21 16:29 Intake & Output 08/15/21 08/16/21 08/16/21 18:59 06:59 18:59 Intake Total 1450 Output Total 900 700 Balance -900 750 Intake: IV 10 Invasive Line 2 10 Oral 1440 Output: Urine 900 700 Other: Voiding Method Urinal Urinal Urinal Incontinent # Voids 1 1 1 # Bowel Movements 1 1 - Labs CBC & Chem 7: 08/14/21 16:53 08/14/21 16:53 Labs: Abnormal Lab Results - Last 24 Hours (Table) 08/16/21 Range/Units 13:01 POC Glucose (mg/dL) 126 H (75-99) mg/dL
[2021-08-16 17:39] VITALS: BMI 25.8
[2021-08-17] MEDS: SODIUM CHLORIDE 0.9% 1,000 ML IV SCH (06:07)
[2021-08-17] MEDS: SERTRALINE 50 MG TAB PO SCH (08:31)
[2021-08-17] MEDS: levETIRAcetam 500 MG TAB PO SCH ×2 (08:31→20:52)
[2021-08-17] MEDS: HEPARIN SODIUM,PORCINE/PF 5,000 UNIT/0.5 ML SYRINGE SQ SCH ×2 (08:31→20:52)
[2021-08-17] MEDS: MEMANTINE 10 MG TAB PO SCH ×2 (08:31→20:52)
--- NOTE | 2021-08-17 14:41 | P.PN ---
Subjective Principal diagnosis: Syncope Chart was reviewed patient was seen and examined. Patient history of seizures and dementia presenting with 2 syncopal episodes. Found to be bradycardic with sinus bradycardia. He is admitted for regulation of the syncopal episodes. Today patient is awake and alert following commands participating in conversation. He is not oriented to time and date. He currently reports no discomfort no distress no GI respiratory complaints no headache or vision changes. Objective - Vital Signs Vital signs: Vital Signs Temp 98.3 F 08/17/21 04:00 Pulse 52 L 08/17/21 12:20 Resp 16 08/17/21 12:20 BP 116/72 08/17/21 12:20 Pulse Ox 96 08/17/21 12:20 Intake & Output 08/16/21 08/17/21 08/17/21 18:59 06:59 18:59 Intake Total 1690 2680 Output Total 700 500 Balance 990 2180 Weight 74.843 kg Intake: IV 10 Invasive Line 2 10 Oral 1680 2680 Output: Urine 700 500 Other: Voiding Method Urinal Urinal # Voids 1 1 # Bowel Movements 1 1 - Exam Patient is awake alert not in distress orientated 0, however he is able to a nswer my questions appropriately and to follow commands appropriately Cardiovascular: S1S2 reg, no murmur, positive dorsalis pedis pulses Lungs: CTA bilateral, no rhonchi, no rales , no accessory muscle use Abdominal: soft, nontender to palpation, no guarding, no appreciable organomegaly Ext: no gross muscle atrophy, no edema, no contractures Neuro: CN II-XI grossly intact, no focal neuro deficits, he has some mild asterixis, extraocular movements are intact, no nystagmus - Labs CBC & Chem 7: 08/14/21 16:53 08/14/21 16:53 Assessment and Plan Plan: #Syncope Cardiogenic versus seizures He does have a history of seizures in his on Keppra EKG notable for bradycardia with right bundle bunch block TSH is normal, echocardiogram without acute Cardiology consulted, keep on telemetry Cardiology recommended neurological auscultation Obtain Keppra level and ammonia level #Bradycardia with right bundle branch block -Continue with telemetry -Cardiology recommendations -Echocardiogram without abnormality - nursing to recheck orthostatic vital signs - walk patient to assess for chronotropic competency -Hold Aricept #Dementia with behavioral disturbances -Safe and supportive environment -Hold Aricept as it is contraindicated with arrhythmia Check ammonia #seizure disorder -Keppra DVT prophylaxis: Subcu heparin
[2021-08-17] MEDS: THIAMINE 100 MG TAB PO SCH (16:28)
--- NOTE | 2021-08-17 17:37 | P.CNNES ---
History of Present Illness Consult date: 08/17/21 Requesting physician: Angelo Stone Reason for Consult: Syncope History of Present Illness: Patient is a 71-year-old male with history of significant Alzheimer's dementia, was brought to the hospital by patient's on 08/14/2021 for a syncopal spell. Patient not able to provide any history because of his eventual. Patient's was present. She states that on the day of admission at home patient went to the bathroom, and apparently passed out in the bathroom. When she went in, he was in a blank stare. He was out for short period of time. Later during the day, patient and his went to groceries. There was standing at the checkout line, and she was in front of him, when he suddenly leaned on her back. He then started falling, but fortunately another person standing behind, grabbed him and supported him. She shook him a couple times and he did came to. No convulsive activity was noted. There was no chest pain, palpitations or difficulty breathing reported. No fever or chills or cough. Patient's states that he has passed out couple times in May when he was admitted to [facility]. Patient is also taking seizure medication. Patient's states that he had a sleep study done and was found to have silent seizures all night, therefore was placed on Keppra by Dr. Horne. I saw the sleep study performed on 10/22/2019, which revealed no significant respiratory abnormalities documented during the sleep study. Bradycardia with some ST changes without previous history of coronary artery disease. Short latency to REM sleep indicated possibility of narcolepsy. Patient's EKG ran between 32 and 43 significant bradycardia. Patient's states that now he has started seeing Dr. Gamez nurse practitioner. 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 He is in the process of getting evaluation by the neurosurgeon Dr. Darwin Grover with [facility] in [facility]. Patient's states that patient does have problem with gait for last 1 year. He shuffles and is getting slower. No major concerns about bowel or bladder issues reported by patient's . Patient's home medications include Namenda 10 mg twice a day, Aricept 10 mg daily (on for last 8 years), ginkgo biloba, fish oil, vitamin D, Zoloft 50 mg daily and Keppra 500 mg every 12 hours. Patient denies any history of hypertension diabetes tobacco or alcohol use. Review of Systems Patient denies headache any strokelike symptoms. No chest pain or abdominal pain nausea vomiting diarrhea. All other review of systems reviewed except as mentioned in HPI. Past Medical History Past Medical History: Memory Impairment History of Any Multi-Drug Resistant Organisms: None Reported Past Surgical History: Orthopedic Surgery Additional Past Surgical History / Comment(s): BILAT SHOULDER SX. COLONOSCOPY/EGD Past Anesthesia/Blood Transfusion Reactions: No Reported Reaction Past Psychological History: No Psychological Hx Reported Smoking Status: Never smoker Past Alcohol Use History: Occasional Past Drug Use History: None Reported - Past Family History Mother Family Medical History: No Reported History Medications and Allergies Home Medications Medication Instructions Recorded Confirmed Type Donepezil [Aricept] 10 mg PO DAILY 01/09/19 08/14/21 History Memantine [Namenda] 10 mg PO BID 01/09/19 08/14/21 History Cholecalciferol [Vitamin D3 (25 25 mcg PO MO 05/13/21 08/14/21 History Mcg = 1000 Iu)] Fish Oil/Dha/Epa [Fish Oil 1,200 1 cap PO DAILY 05/13/21 08/14/21 History mg Fish Oil] Ginkgo Biloba [place] Extract [Ginkgo] 120 mg PO DAILY 05/13/21 08/14/21 History Sertraline [Zoloft] 50 mg PO DAILY 08/14/21 08/14/21 History levETIRAcetam [Keppra] 500 mg PO Q12HR 08/14/21 08/14/21 History Allergies Allergy/AdvReac Type Severity Reaction Status Date / Time No Known Allergies Allergy Verified 08/14/21 17:23 Physical Examination - Vital Signs Vital Signs: Vital Signs Temp Pulse Pulse Resp BP BP BP 08/17/21 04:00 98.3 F 50 L 16 08/17/21 02:00 57 L 08/17/21 00:00 97.2 F L 57 L 16 08/16/21 20:00 98.6 F 53 L 16 08/16/21 16:29 98.5 F 64 16 08/16/21 12:18 98.0 F 54 L 18 119/73 110/78 117/74 BP Pulse Ox 08/17/21 04:00 109/60 95 08/17/21 02:00 08/17/21 00:00 110/64 96 08/16/21 20:00 110/74 96 08/16/21 16:29 106/63 96 08/16/21 12:18 96 Intake and Output 08/16/21 08/17/21 08/17/21 22:59 06:59 14:59 Intake Total 840 2440 Output Total 250 300 Balance 590 2140 Intake: Oral 840 2440 Output: Urine 250 300 Other: Voiding Method Urinal Urinal # Voids 1 # Bowel Movements 1 Weight 74.843 kg Patient is an elderly male, in no acute distress. Patient is alert awake, only oriented to himself. He perseverates on 20. Patient could not tell his age, states he is 22 years of age. He states that he is his for 20 years. He is not able to tell name of his or how many kids he has. He states his is 20 years old. However he was able to tell that his son Monty has two sons (patient's grandsons) and his daughter Christine does not have any children at this time correctly. Patient has no clue regarding the current month or the year. He could not tell what city and state he lives in. Patient was able to name simple objects like ear, pen, however not able to name glasses, states "eye". Patient can repeat somewhat better. Some paraphasic errors. Attention, concentration and fund of knowledge is severely limited. Palmomental reflex absent, however positive visuospatial apraxia. On cranial examination, pupils are equal, round and reacting to light, visual borjas are full on confrontation, extraocular muscles are intact with no nystagmus. Face is symmetric, tongue protrudes to the midline. Palatal elevation and sensation normal, hearing is slightly decreased and shoulder shrug normal, facial sensation normal. Shoulder shrug normal. On muscle strength testing, there is no pronator drift and the strength is n ormal in arms and legs distally and proximally. Deep tendon reflexes are symmetric 2+ and plantars downgoing. Sensory to touch is equal, although difficult to assess because of his comprehension. Cerebellar function showed no ataxia for [id number] testing. Tone and bulk of muscles normal. Gait deferred. On general examination, there is no carotid bruit or murmur, S1-S2 audible. Abdomen is soft nontender. No organomegaly, bowel sounds present. Chest is clear. Peripheral pulses are present. No edema. Results - Laboratory Findings CBC and BMP: 08/14/21 16:53 08/14/21 16:53 Abnormal Lab Findings: Abnormal Labs 08/14/21 08/15/21 08/16/21 16:53 06:23 13:01 BUN 7 L Glucose 103 H POC Glucose (mg/dL) 126 H Cholesterol 227.00 H LDL Cholesterol, Calc 156.2 H Assessment and Plan Assessment: * Syncopal spells, likely cardiac related, perhaps due to bradycardia. Orthostatics checked were negative. Seizures less likely, as both events occurred while he was standing. * Alzheimer's dementia, moderate to severe degree. * Prominent ventricles, rule out NPH. * Hypertension Plan: * Telemetry monitoring so far showing sinus rhythm, sinus bradycardia is in high 40s. Orthostatics are negative. Suggest event monitor at the time of discharge or loop recorder to evaluate for arrhythmia. * Agree with stopping donepezil, as it has to be used with caution in patients with heart block. Continue Namenda for dementia. * Check EEG to evaluate for epileptiform activity. * Patient has prominent ventricles. He does have significant amount of cortical atrophy as well. Patient is in the process of seeing a neurosurgeon Dr. Darwin Grover as outpatient for possible ventriculoperitoneal shunting. He does not appear to be a great candidate for shunting because of advanced dementia. * 2-D echo revealed resting bradycardia, left ventricular size is normal. Borderline concentric LVH. EF is between 60-65%. Mild aortic valve sclerosis. Possible bicuspid aortic valve. The aortic root is dilated measuring 4.0 cm. We will defer to cardiology regarding aortic root. * CT head showed cerebral atrophy and moderate hydrocephalus. No acute abnormality. No change compared to old exam. * Lipid panel with cholesterol 227, LDL 156, HDL 52 and triglycerides and 3.4. TSH 1.17. * Keppra level is 11.4 (3-60) * Discussed with patient's . Neurology will follow. Thank you for the consult.
--- NOTE | 2021-08-17 19:46 | EEG ---
ELECTROENCEPHALOGRAM REPORT DATE OF SERVICE: 08/17/2021 PREAMBLE: This is a 71-year-old male with syncope versus seizure. This study is performed to evaluate for any epileptiform activity. EEG FINDINGS: This is 21-channel digital EEG recorded with video competent, utilizing 10/20 international system with referential and bipolar montages. The recording starts and continues with presence of low- to moderate-amplitude mixed frequencies of theta, with lower frequency delta activity seen in bihemispheric region. Background does not seem to be reactive to eye opening and closing. Photic driving response was not seen. Different stages of sleep were not clearly seen. No focal or generalized epileptiform activity was seen. IMPRESSION: This is an abnormal EEG due to background slowing of at least moderate degree. This is suggestive of generalized cerebral dysfunction as can be seen with encephalopathy of metabolic, vascular or degenerative causes. No epileptiform activity was seen. MMODL / IJN: [id number] /
[2021-08-18 09:09] LABS: HCT 46.8 % (39.0-53.0); HGB 15.9 gm/dL (13.0-17.5); MCH 34.4 pg (25.0-35.0); Mean Platelet Volume 7.7; Platelet Count 191 k/uL (150-450); RBC 4.63 m/uL (4.30-5.90); RDW 13.1 % (11.5-15.5); WBC 5.1 k/uL (3.8-10.6)
[2021-08-18] MEDS: MEMANTINE 10 MG TAB PO SCH (09:10)
[2021-08-18] MEDS: THIAMINE 100 MG TAB PO SCH (09:10)
[2021-08-18] MEDS: SERTRALINE 50 MG TAB PO SCH (09:10)
[2021-08-18] MEDS: levETIRAcetam 500 MG TAB PO SCH (09:10)
[2021-08-18] MEDS: HEPARIN SODIUM,PORCINE/PF 5,000 UNIT/0.5 ML SYRINGE SQ SCH (09:10)
[2021-08-18 09:22] LABS: ALT 13 U/L (4-49); AST 21 U/L (17-59); African American GFR (CKD) >90 (>60 ml/min/1.73 sqM); Albumin 3.6 g/dL (3.5-5.0); Alkaline Phosphatase 57 U/L (38-126); Anion Gap 2 mmol/L; Blood Urea Nitrogen 13 mg/dL (9-20); Calcium 8.9 mg/dL (8.4-10.2); Carbon Dioxide 30 mmol/L (22-30); Chloride 105 mmol/L (98-107); Glucose 118 mg/dL (74-99); Non-African American GFR(CKD) >90 (>60 ml/min/1.73 sqM); Potassium 3.9 mmol/L (3.5-5.1); Sodium 137 mmol/L (137-145); Total Bilirubin 0.6 mg/dL (0.2-1.3); Total Protein 6.1 g/dL (6.3-8.2)
--- NOTE | 2021-08-18 15:03 | P.DS ---
Providers Date of admission: 08/14/21 17:45 Expected date of discharge: 08/18/21 Attending physician: Megha Larsen DO Consults: 08/17/21 09:19 Consult Physician Routine Consulting Provider: Devonte Koroma Consult Reason/Comments: Syncope Do you want consulting provider notified?: Yes Primary care physician: Ras Quintanilla [facility] Course: Patient is a 71-year-old gentleman with dementia, prior history of COVID, and probable seizure disorder who presented after 2 syncopal episodes. In the ER he was found to be bradycardic. Remainder of his laboratory analysis were within normal limits. TSH and troponins were normal. EKG demonstrated a right bundle branch block with sinus bradycardia. Is admitted for further monitoring. Cardiology was consulted. Physical examination: General: non toxic, no distress, appears at stated age. Patient is oriented to himself Derm: warm, dry Head: atraumatic, normocephalic, symmetric Eyes: EOMI, no lid lag, anicteric sclera Mouth: no lip lesion, mucus membranes moist Cardiovascular: S1S2 reg, no murmur, positive posterior tibial pulse bilateral, Lungs: CTA bilateral, no rhonchi, no rales , no accessory muscle use Abdominal: soft, nontender to palpation, no guarding, no appreciable organomegaly Ext: no gross muscle atrophy, no edema, no contractures Neuro: CN II-XI grossly intact, no focal neuro deficits Psych: Alert, oriented to self only. Initially thought his is in the room and that he was at home, appropriate affect Hospital course: Syncope Bradycardia with right bundle branch block -Continue with telemetry -Cardiology cleared the patient for discharge. Outpatient event monitor was set up on discharge -Echocardiogram without abnormality -Negative orthostatic -Hold Aricept since Kinko's arrhythmia -CT head negative -seizure precautions -keppra level therapeutic -Cardiology cleared the patient for discharge Dementia -Safe and supportive environment -Holding Aricept as it is contraindicated with arrhythmia seizure disorder -Keppra Patient Condition at Discharge: Stable Plan - Discharge Summary Discharge Rx Participant: Yes New Discharge Prescriptions: Continue Memantine [Namenda] 10 mg PO BID Ginkgo Biloba [place] Extract [Ginkgo] 120 mg PO DAILY Sertraline [Zoloft] 50 mg PO DAILY levETIRAcetam [Keppra] 500 mg PO Q12HR Discontinued Donepezil [Aricept] 10 mg PO DAILY No Action Fish Oil/Dha/Epa [Fish Oil 1,200 mg Fish Oil] 1 cap PO DAILY Cholecalciferol [Vitamin D3 (25 Mcg = 1000 Iu)] 25 mcg PO MO Discharge Medication List Memantine [Namenda] 10 mg PO BID 01/09/19 [History] Cholecalciferol [Vitamin D3 (25 Mcg = 1000 Iu)] 25 mcg PO MO 05/13/21 [History] Fish Oil/Dha/Epa [Fish Oil 1,200 mg Fish Oil] 1 cap PO DAILY 05/13/21 [History] Ginkgo Biloba [place] Extract [Ginkgo] 120 mg PO DAILY 05/13/21 [History] Sertraline [Zoloft] 50 mg PO DAILY 08/14/21 [History] levETIRAcetam [Keppra] 500 mg PO Q12HR 08/14/21 [History] Follow up Appointment(s)/Referral(s): Gopi Bowman MD [STAFF PHYSICIAN] - 1 Week Ras Ames MD [Primary Care Provider] - 1 Week Patient Instructions/Handouts: Epilepsy (DC), Nonepileptic Seizures (DC) Discharge Disposition: HOME SELF-CARE
[2021-08-18 16:29] VITALS: BP 110/74; PULSE 54; RESP 15; TEMP 98
--- NOTE | 2021-08-18 18:25 | P.PN ---
Subjective Progress Note Date: 08/18/21 Patient feeling fine. Offers no complaints. Patient's was also present in the room. Telemetry monitoring only showing heart rate in the 50s. Occasionally may go down to 47. Objective - Vital Signs Vital signs: Vital Signs Temp 98.1 F 08/18/21 08:00 Pulse 53 L 08/18/21 11:57 Resp 17 08/18/21 11:57 BP 117/70 08/18/21 11:57 Pulse Ox 96 08/18/21 11:57 Intake & Output 08/17/21 08/18/21 08/18/21 18:59 06:59 18:59 Intake Total 2920 480 Output Total 700 Balance 2220 480 Intake: Oral 2920 480 Output: Urine 700 Other: Voiding Method Urinal # Voids 2 # Bowel Movements 1 - Exam Examination remains unchanged. - Labs CBC & Chem 7: 08/18/21 08:26 08/18/21 08:26 Labs: Abnormal Lab Results - Last 24 Hours (Table) 08/18/21 08/18/21 Range/Units 08:26 08:26 MCV 101.0 H (80.0-100.0) fL Glucose 118 H (74-99) mg/dL Total Protein 6.1 L (6.3-8.2) g/dL Assessment and Plan Assessment: * Syncopal spells, likely cardiac related, perhaps due to bradycardia. Orthostatics checked were negative. Seizures less likely, as both events occurred while he was standing. * Alzheimer's dementia, moderate to severe degree. * Prominent ventricles, rule out NPH. Probably from advanced dementia. Doubt NPH. * Hypertension Plan: * Telemetry monitoring so far showing sinus rhythm, sinus bradycardia is in high 40s. Orthostatics are negative. Recommend event monitor to evaluate for arrhythmia. * Agree with stopping donepezil, as it has to be used with caution in patients with heart block. Continue Namenda for dementia. * EEG was completed, which revealed background slowing of mild to moderate degree, suggestive of encephalopathy of metabolic, vascular or degenerative causes. No epileptiform activity was seen. * Patient has prominent ventricles. He does have significant amount of cortical atrophy as well. Patient is in the process of seeing a neurosurgeon Dr. Darwin Grover as outpatient for possible ventriculoperitoneal shunting. He does not appear to be a great candidate for shunting because of advanced dementia. * 2-D echo revealed resting bradycardia, left ventricular size is normal. Borderline concentric LVH. EF is between 60-65%. Mild aortic valve sclerosis. Possible bicuspid aortic valve. The aortic root is dilated measuring 4.0 cm. We will defer to cardiology regarding aortic root. * CT head showed cerebral atrophy and moderate hydrocephalus. No acute abnormality. No change compared to old exam. * Lipid panel with cholesterol 227, LDL 156, HDL 52 and triglycerides and 3.4. TSH 1.17. * Keppra level is 11.4 (3-60) * Neurologically clear for discharge. Discussed with primary physician.
--- NOTE | 2021-09-23 08:59 | P.CEMON ---
Event monitor shows Sinus mechanism with heart rates ranging from 46-81 beats a minute Mild nighttime bradycardia in the high 40s Short as well as longer runs of nonsustained atrial tachycardia/atrial fibrillation with RVR Some of these are associated with aberrant conduction, sometimes with a left bundle branch block morphology and at other times of the right bundle-branch block morphology Single wide complex beats also noted that this is most likely aberrant conduction rather than PVCs
== END 2021-08-18 16:24 | disposition home or self-care (01) ==
LOC: EC 16:20 → 3SCARD 17:45 → INTOOBSV 17:45 → 3SCARD 18:01 → UNDODISIN 08-18 16:24
PROVIDERS: ADMIT Internal Medicine; ATTEND Internal Medicine
DX: R55 Syncope and collapse (principal); R00.1 Bradycardia, unspecified; I45.10 Unspecified right bundle-branch block; G40.909 Epilepsy, unspecified, not intractable, without status epilepticus; I48.91 Unspecified atrial fibrillation; R32 Unspecified urinary incontinence; F02.80 Dementia in other diseases classified elsewhere, unspecified severity, without behavioral disturbance, psychotic disturbance, mood disturbance, and anxiety; G30.9 Alzheimer's disease, unspecified; I10 Essential (primary) hypertension; R41.3 Other amnesia; R01.1 Cardiac murmur, unspecified; I08.2 Rheumatic disorders of both aortic and tricuspid valves; Z86.16 Personal history of COVID-19; Z71.9 Counseling, unspecified; Z79.899 Other long term (current) drug therapy
CPT/HCPCS: 96372 ×4; 99285; 36415; 94760; 95816; 93005; 93306; 93270; 80061; 80053 ×2; 80177; 84443; 82140; 83735; 84484; 85025; 85027; 85610; 85730; 71046; 70450; G0378 ×5; J1644 ×4

== ENCOUNTER 2022-10-30 06:52 | Inpatient (IN) | payer MEDICARE ==
--- NOTE | 2022-10-30 07:13 | ED ---
Fall HPI - General Chief Complaint: Fall Stated Complaint: Fall Time Seen by Provider: 10/30/22 06:53 Source: patient, family, EMS, RN notes reviewed Mode of arrival: EMS Limitations: altered mental status (Secondary to Alzheimer's) - History of Present Illness Initial Comments: This is a 72-year-old male who presents to the emergency department for a fall. Per EMS, his turned his back for a second, and when she turned around he had fallen backwards. She believes that he just tripped. There was no loss of consciousness and he is not on any blood thinners. It is unclear if he hit his head. He is currently complaining of right hip pain. Patient has Alzheimer's and is unable to provide information aside from saying where his pain is, howeve r per his he is at his baseline. MD Complaint: fall - Related Data Home Medications Medication Instructions Recorded Confirmed Cholecalciferol [Vitamin D3 (25 25 mcg PO MO 05/13/21 10/30/22 Mcg = 1000 Iu)] Saw/Vit E/Sod Amirah/Lyc/Beta/Pyg 1 tab PO DAILY 10/30/22 10/30/22 [Prostate Health Caplet] Vit C/E/Zn/Coppr/Lutein/Zeaxan 1 cap PO DAILY 10/30/22 10/30/22 [Preservision Areds 2 Softgel] Allergies Allergy/AdvReac Type Severity Reaction Status Date / Time No Known Allergies Allergy Verified 10/30/22 11:08 Review of Systems ROS Statement: Those systems with pertinent positive or pertinent negative responses have been documented in the HPI. ROS Other: All systems not noted in ROS Statement are negative. Past Medical History Past Medical History: Dementia, Memory Impairment Additional Past Medical History / Comment(s): Alzheimers History of Any Multi-Drug Resistant Organisms: None Reported Past Surgical History: Orthopedic Surgery Additional Past Surgical History / Comment(s): BILAT SHOULDER SX. COLONOSCOPY/EGD Past Anesthesia/Blood Transfusion Reactions: No Reported Reaction Past Psychological History: No Psychological Hx Reported Smoking Status: Never smoker Past Alcohol Use History: Occasional Past Drug Use History: None Reported - Past Family History Mother Family Medical History: No Reported History General Exam Limitations: altered mental status (Secondary to Alzheimer's) General appearance: alert, in no apparent distress Head exam: Present: atraumatic, normocephalic, normal inspection Eye exam: Present: normal appearance, PERRL, EOMI. Absent: scleral icterus, conjunctival injection, periorbital swelling Respiratory exam: Present: normal lung sounds bilaterally. Absent: respiratory distress, wheezes, rales, rhonchi, stridor Cardiovascular Exam: Present: regular rate, normal rhythm, normal heart sounds. Absent: systolic murmur, diastolic murmur, rubs, gallop, clicks Extremities exam: Present: other (Tenderness to palpation over the right greater trochanter. Mild external rotation of the right lower extremity. 2+ DP and PT pulses.) Neurological exam: Present: alert Skin exam: Present: warm, dry, intact, normal color. Absent: rash Course Vital Signs 10/30/22 10/30/22 10/30/22 06:55 08:34 12:00 Temperature 97.1 F L 97.6 F Pulse Rate 66 67 75 Respiratory 18 16 18 Rate Blood Pressure 100/76 105/87 128/82 O2 Sat by Pulse 98 98 95 Oximetry Medical Decision Making - Medical Decision Making This is a 72-year-old male who presents to the emergency department for a fall. Was pt. sent in by a medical professional or institution? @ -No Did you speak to anyone other than the patient for history? @ -EMS and his , who provided the majority of the information, as the patient has Alzheimer's and is unable to provide much history himself, aside from where his pain is. Did you review nursing and triage notes? @ -Yes, and I agree, it is accurate with regards to the patient's symptoms. Were old charts reviewed? @ -No Differential Diagnosis? @ -Differential Hip Pain: Fracture, dislocation, osteoarthritis, rheumatoid arthritis, septic arthritis, gout, synovitis, piriformis syndrome, bursitis, arterial occlusion, DVT, femoroacetabular inpingement, labral tear, avascular necrosis, SI joint dysfunction, this is not meant to be an all-inclusive list. EKG interpreted by me (3pts min.)? @ -Sinus rhythm. Ventricular rate 63 BPM, AZ interval 173 ms, QRS duration 133 ms, QTc 421 ms. X-rays interpreted by me (1pt min.)? @ -X-ray of the chest, pelvis, right hip, and right femur obtained. My interpretation identifies a right intertrochanteric fracture. CT interpreted by me (1pt min.)? @ -Computed tomography scan of the brain and c-spine obtained. My interpretation identifies no evidence of an acute intracranial hemorrhage, skull fracture, or cervical spine fracture. U/S interpreted by me (1pt. min.)? @ -Not obtained What testing was considered but not performed? (CT, X-rays, U/S, labs)? Why? @ -None What meds were considered but not given? Why? @ -None Did you discuss the management of the patient with other professionals? @ -Yes, Dr. Sawyer, who accepts the patient for admission. Did you reconcile home meds? @ -Yes Was smoking cessation discussed for >3mins.? @ -No Was critical care preformed (if so, how long)? @ -No Were there social determinants of health that impacted care today? How? (Homelessness, low income, unemployed, alcoholism, drug addiction, transportation, low edu. Level, literacy, decrease access to med. care, care home, rehab)? @ -No Was there de-escalation of care discussed even if they declined? (Discuss DNR or withdrawal of care, Hospice)? @ -No What co-morbidities impacted this encounter? (DM, HTN, Smoking, COPD, CAD, Cancer, CVA, Hep., AIDS, mental health diagnosis, sleep apnea, morbid obesity)? @ -Alzheimer's Was patient admitted / discharged? @ -Admitted. CT scan of the brain/c-spine and x-rays of the chest, pelvis, right hip, and right femur obtained. Imaging reveals a subtle right inter trochanteric fracture. No other acute findings/injuries were evident. Patient admitted to orthopedics for further management. Medicine listed as consult for medical management and surgical clearance. Patient is not on blood thinners and has not had anything to eat today. Patient kept NPO after midnight with plan for surgical intervention in the morning. Preoperative blood work and EKG ordered with results pending at the time of admission. Undiagnosed new problem with uncertain prognosis? @ -None Drug Therapy requiring intensive monitoring for toxicity (Heparin, Nitro, Insulin, Cardizem)? @ -None Were any procedures done? @ -None Diagnosis/symptom? @ -Right intertrochanteric fracture Acute, or Chronic, or Acute on Chronic? @ -Acute Uncomplicated (without systemic symptoms) or Complicated (systemic symptoms)? @ -Complicated Side effects of treatment? @ -None Exacerbation, Progression, or Severe Exacerbation] @ -Not applicable Poses a threat to life or bodily function? @ -Yes This case was discussed in detail with the attending ED physician, Dr. Sanchez. Presentation, findings, and treatment plan discussed in detail as well. - Lab Data Result diagrams: 10/30/22 08:54 10/30/22 08:54 - Radiology Data Radiology results: report reviewed, image reviewed Disposition Clinical Impression: Fracture, intertrochanteric, right femur Disposition: ADMITTED IP TO THIS HOSP
--- NOTE | 2022-10-30 08:01 | XR ---
EXAMINATION TYPE: XR chest 1V DATE OF EXAM: 10/30/2022 COMPARISON: 08/14/2021 INDICATION: Pain after fall TECHNIQUE: Single frontal view of the chest is obtained. FINDINGS: The heart size is normal. The pulmonary vasculature is normal. The lungs are clear. Catheter transverses [id number] on the right thorax. No displaced fractures evident. No pneumothorax evident. IMPRESSION: 1. No acute pulmonary process.
--- NOTE | 2022-10-30 08:04 | XR ---
EXAMINATION TYPE: XR pelvis AP view DATE OF EXAM: 10/30/2022 COMPARISON: None HISTORY: Pain, fall TECHNIQUE: AP pelvis FINDINGS: Femoral heads articulate with the acetabulum. There appears to be a subtle intertrochanteri c fracture of the right hip. Symphysis pubis and sacroiliac joints are normal. No acute fractures are evident. Normal bowel gas is present. Catheter is present with the tip in the pelvis. IMPRESSION: 1. Intertrochanteric fracture right hip
--- NOTE | 2022-10-30 08:06 | XR ---
EXAMINATION TYPE: XR Hip Complete RT DATE OF EXAM: 10/30/2022 COMPARISON: Pelvis HISTORY: Fall, pain TECHNIQUE: 2 views right hip FINDINGS: Femoral head articulates with the acetabulum. There is a lucency extending through the grea ter trochanter to the lesser trochanter compatible with an intertrochanteric fracture. No additional fractures are evident. IMPRESSION: 1. Intertrochanteric fracture right hip
--- NOTE | 2022-10-30 08:07 | XR ---
EXAMINATION TYPE: XR femur RT DATE OF EXAM: 10/30/2022 COMPARISON: Right hip HISTORY: Pain after fall TECHNIQUE: 2 view right femur FINDINGS: Femoral head articulates with the acetabulum. There is an intertrochanteric fracture. Femur otherwise appears normal. There are some mild degenerative changes of the joint space. IMPRESSION: 1. Intertrochanteric fracture right hip
[2022-10-30] MEDS ORDERED: NALOXONE 0.4 MG/ML 1 ML VIAL IV PRN (08:15)
[2022-10-30] MEDS ORDERED: ACETAMINOPHEN TAB 325 MG TAB PO PRN (08:15)
[2022-10-30] MEDS ORDERED: MORPHINE SULFATE 2 MG/ML SYRINGE IVP STA (08:15)
[2022-10-30] MEDS ORDERED: HYDROmorphone 1 MG/ML 1 ML SYRINGE IVP PRN (08:15)
[2022-10-30] MEDS ORDERED: ONDANSETRON 4 MG/2 ML VIAL IVP PRN (08:15)
--- NOTE | 2022-10-30 08:21 | CT ---
EXAMINATION TYPE: CT brain brandee parra con DATE OF EXAM: 10/30/2022 COMPARISON: 10/02/1721 HISTORY: Pain after fall, hx dementia, memory impairment CT DLP: 1569.8 mGycm, Automated exposure control for dose reduction was used. CONTRAST: Patient injected with mL of . CT of the brain is performed utilizing 3 mm thick sections through the posterior fossa and 3 mm thick sections through the remaining calvarium. Study is performed within 24 hours of arrival to the hospital. No abnormal hyperdensity is present to suggest an acute intracranial hemorrhage. No mass lesion is evident. No acute infarcts are evident. Ventricles and sulci are prominent for the patient age. Shunt catheter on the posterior right has it s tip in the right lateral ventricle. Ventricles are diffusely prominent. Temporal horn dilatation is not evident. There is prominence of sulci. Paranasal sinuses and mastoid air cells within the [id number] are clear. IMPRESSIONS: 1. Shunt catheter with apparent treated hydrocephalus. No suspicious rounding of the temporal horns a t this time. Findings appear similar to slightly improved from 08/15/2021 2. Atrophy 3. No acute intracranial process radiographically apparent. Follow-up can be performed as clinically indicated CT cervical spine. COMPARISON: None CT of the cervical spine is performed in the axial plane at 2 mm thick sections. Reconstructed image s in the coronal, and sagittal plane are reviewed on the computer. No acute fractures are evident. Prevertebral space is normal. Posterior spinal lamellar line appears intact. Note is made of some calcification within the posterior longitudinal ligament. Vertebral body alignment is normal. Diffuse disc space narrowing is present greater in the lower cervical spine. Vertebral body heights are preserved. Some endplate spurring is present C5-6 C6-7. AP spinal canal stenosis is not evident. Uncovertebral joint hypertrophy is noted at C5-6 with severe bilateral foraminal stenosis. Severe for aminal stenosis from uncovertebral joint hypertrophy is also present C6-7. IMPRESSIONS: 1. Degenerative changes with foraminal stenosis and loss of disc height C5-6 and C6-7. 2. No acute osseous abnormality cervical spine
[2022-10-30 09:01] LABS: Basophils % (A) 0 %; Eosinophils # (A) 0.1 k/uL (0-0.7); Eosinophils % (A) 1 %; HCT 45.7 % (39.0-53.0); HGB 15.4 gm/dL (13.0-17.5); Lymphocytes # (A) 0.9 k/uL (1.0-4.8); Lymphocytes % (A) 7 %; MCH 32.8 pg (25.0-35.0); MCHC 33.7 g/dL (31.0-37.0); MCV 97.3 fL (80.0-100.0); Mean Platelet Volume 8.2; Monocytes # (A) 0.5 k/uL (0-1.0); Monocytes % (A) 3 %; Neutrophils # (A) 12.4 k/uL (1.3-7.7); Neutrophils % (A) 89 %; Platelet Count 220 k/uL (150-450); RBC 4.69 m/uL (4.30-5.90); RDW 12.2 % (11.5-15.5); WBC 13.9 k/uL (3.8-10.6)
[2022-10-30 09:11] LABS: ALT 19 U/L (4-49); AST 19 U/L (17-59); African American GFR (CKD) >90 (>60 ml/min/1.73 sqM); Albumin 3.8 g/dL (3.5-5.0); Alkaline Phosphatase 70 U/L (38-126); Anion Gap 5 mmol/L; Blood Urea Nitrogen 10 mg/dL (9-20); Calcium 8.8 mg/dL (8.4-10.2); Carbon Dioxide 24 mmol/L (22-30); Chloride 108 mmol/L (98-107); Glucose 105 mg/dL (74-99); Non-African American GFR(CKD) >90 (>60 ml/min/1.73 sqM); Sodium 137 mmol/L (137-145); Total Bilirubin 0.9 mg/dL (0.2-1.3); Total Protein 6.2 g/dL (6.3-8.2)
[2022-10-30 09:12] LABS: INR 1.1 (<1.2); Partial Thromboplastin Time 22.4 sec (22.0-30.0); Prothrombin Time 11.2 sec (9.0-12.0)
--- NOTE | 2022-10-30 10:34 | P.HPOR ---
History of Present Illness H&P Date: 10/30/22 This is a 72-year-old male who is admitted for right hip fracture. Patient is seen and evaluated at bedside today in the emergency room with Dr. Terrell Sawyer. The patient's is present at bedside today and states that Emeterio has a past medical history significant for Alzheimer's. The patient's states that he had a fall at home on 10/30/2022. The patient's states that he was recently taken off all of his Alzheimer's medication and has been unsteady. Review of Systems ROS unobtainable: due to mental status Past Medical History Past Medical History: Dementia, Memory Impairment Additional Past Medical History / Comment(s): Alzheimers History of Any Multi-Drug Resistant Organisms: None Reported Past Surgical History: Orthopedic Surgery Additional Past Surgical History / Comment(s): BILAT SHOULDER SX. COLONOSCOPY/EGD Past Anesthesia/Blood Transfusion Reactions: No Reported Reaction Past Psychological History: No Psychological Hx Reported Smoking Status: Never smoker Past Alcohol Use History: Occasional Past Drug Use History: None Reported - Past Family History Mother Family Medical History: No Reported History Medications and Allergies Home Medications Medication Instructions Recorded Confirmed Type Memantine [Namenda] 10 mg PO BID 01/09/19 08/14/21 History Cholecalciferol [Vitamin D3 (25 25 mcg PO MO 05/13/21 08/14/21 History Mcg = 1000 Iu)] Fish Oil/Dha/Epa [Fish Oil 1,200 1 cap PO DAILY 05/13/21 08/14/21 History mg Fish Oil] Ginkgo Biloba [place] Extract [Ginkgo] 120 mg PO DAILY 05/13/21 08/14/21 History Sertraline [Zoloft] 50 mg PO DAILY 08/14/21 08/14/21 History levETIRAcetam [Keppra] 500 mg PO Q12HR 08/14/21 08/14/21 History Allergies Allergy/AdvReac Type Severity Reaction Status Date / Time No Known Allergies Allergy Verified 10/30/22 06:55 Physical Examination On exam patient is resting comfortably in bed in no acute distress. Patient is confused. Right lower extremity: There is pain with any attempted motion of the right lower extremity. Right lower extremity is warm and well perfused. Neurovascul ar status and circulatory status are intact. Exams of the left lower extremity and bilateral upper extremities are within normal limits. Head is normocephalic and atraumatic. Results X-rays of the right hip, pelvis and femur reveal an intertrochanteric fracture of the right hip. - Labs Labs: Abnormal Lab Results - Last 24 Hours (Table) 10/30/22 10/30/22 Range/Units 08:54 08:54 WBC 13.9 H (3.8-10.6) k/uL Neutrophils # 12.4 H (1.3-7.7) k/uL Lymphocytes # 0.9 L (1.0-4.8) k/uL Chloride 108 H (98-107) mmol/L Creatinine 0.56 L (0.66-1.25) mg/dL Glucose 105 H (74-99) mg/dL Total Protein 6.2 L (6.3-8.2) g/dL H & H 10/30/22 Range/Units 08:54 Hgb 15.4 (13.0-17.5) gm/dL Hct 45.7 (39.0-53.0) % Coagulation 10/30/22 Range/Units 08:54 INR 1.1 (<1.2) Result Diagrams: 10/30/22 08:54 10/30/22 08:54 Assessment and Plan (1) Alzheimer's dementia Current Visit: Yes Status: Acute Code(s): G30.9 - ALZHEIMER'S DISEASE, UNSPECIFIED; F02.80 - DEM IN OTH DIS CLASSD ELSWHR,UNSP SEV,W/O BEH/PSYCH/MOOD/ANX SNOMED Code(s): 11041883 (2) Fracture, intertrochanteric, right femur Current Visit: Yes Status: Acute Code(s): S72.141A - DISPLACED INTERTROCHANTERIC FRACTURE OF RIGHT FEMUR, INIT SNOMED Code(s): 736318756 Plan: 1.NPO after midnight. 2. Continue bed rest and pain control. 3. Appreciate input from internal medicine. 4. Planning for closed reduction and intramedullary hip screw fixation of the right hip on 10/31/2022 pending medical clearance and patient consent.
[2022-10-30] MEDS: HYDROmorphone 0.5 MG/0.5 ML SYRINGE IVP PRN (20:57)
--- NOTE | 2022-10-31 03:08 | P.CONS ---
History of Present Illness - Reason for Consult Consult date: 10/30/22 - History of Present Illness Patient is a 72-year-old male with a PMH of hydrocephalus (status post shunt placed one year ago) and Alzheimer's who was brought to the emergency room after a fall. The history is obtained by the patient's and daughters on the phone this patient is at his baseline of oriented only to self. The reports that the patient was in his usual state of health earlier today when he had walking to the bathroom as per usual and she suddenly heard a loud thud. She immediately rushed into the bathroom and found him on the ground consciousness. The patient had denied losing consciousness to her. It was not clear if he had experienced head trauma. At time of interview, the patient was knocked answering questions appropriately and no meaningful history could be obtained. In the emergency room, pelvis and hip x-ray revealed an intertrochanteric fracture of the right hip. A head and cervical spine CT revealed a shunt catheter with treated hydrocephalus with no suspicious rounding of the temporal horns, findings improved from prior. There was also degenerative changes with foraminal stenosis and loss of disc height at C5 to C6 and C6 to C7. EKG had revealed sinus rhythm with right bundle branch block at 63 bpm. Laboratory evaluation was remarkable for leukocytosis of 13.9, sodium 137, chloride 108, creatinine 0.56, glucose 105. ED documentation reviewed and case discussed with ED provider. Review of systems: Unable to obtain due to mental status Physical examination: Vital signs reviewed General: non toxic, no distress, appears at stated age, normal weight Derm: no unusual rashes/lesions, warm Head: atraumatic, normocephalic, symmetric Eyes: EOMI, no lid lag, anicteric sclera, pupils equal round reactive to light ENT: Nose and ears atraumatic Neck: No cervical lymphadenopathy, trachea midline, supple Mouth: no lip lesion, mucus membranes moist Cardiovascular: S1S2 reg, no murmur, positive dorsalis pedis pulse bilateral, no edema Lungs: CTA bilateral, no rhonchi, no rales, no accessory muscle use Abdominal: soft, nontender to palpation, no guarding Ext: muscle strength 5 out of 5 in all 4 extremities grossly except right lower extremity due to pain, no gross muscle atrophy, no contractures Neuro: CN II-XI grossly intact, no gross focal neuro deficits, resting tremors of edmundo UEs noted Psych: Alert, oriented only to self Assessment: Chronic conditions: Hydrocephalus (unknown etiology, can not recall the exact diagnosis), Alzheimer dementia S/p R hip fracture Imaging: In the emergency room, pelvis and hip x-ray revealed an intertrochanteric fracture of the right hip. A head and cervical spine CT revealed a shunt catheter with treated hydrocephalus with no suspicious rounding of the temporal horns, findings improved from prior. There was also degenerative changes with foraminal stenosis and loss of disc height at C5 to C6 and C6 to C7. EKG had revealed sinus rhythm with right bundle branch block at 63 bpm. Data Review: Laboratory evaluation was remarkable for leukocytosis of 13.9, sodium 137, chloride 108, creatinine 0.56, glucose 105. Plan: Preoperative evaluation The patient's reports that the patient has good exercise tolerance and is able to climb stairs without difficulty. He is independent in ADLs only due to his worsening dementia. He currently does not take any medications and reports that his dementia medications were also discontinued by the neurologist. RCRI score 0 (3.9 % 30-day risk of cardiac complications) METS > 4 The patient is currently optimized and does not appear to have any obvious modifiable risk factors for orthopedic surgical procedure Past Medical History Past Medical History: Dementia, Memory Impairment Additional Past Medical History / Comment(s): Alzheimers History of Any Multi-Drug Resistant Organisms: None Reported Past Surgical History: Orthopedic Surgery Additional Past Surgical History / Comment(s): BILAT SHOULDER SX. COLONOSCOPY/EGD Past Anesthesia/Blood Transfusion Reactions: No Reported Reaction Past Psychological History: No Psychological Hx Reported Smoking Status: Never smoker Past Alcohol Use History: Occasional Past Drug Use History: None Reported - Past Family History Mother Family Medical History: No Reported History, Unable to Obtain (due to mental status) Medications and Allergies Home Medications Medication Instructions Recorded Confirmed Type Cholecalciferol [Vitamin D3 (25 25 mcg PO MO 05/13/21 10/30/22 History Mcg = 1000 Iu)] Saw/Vit E/Sod Amirah/Lyc/Beta/Pyg 1 tab PO DAILY 10/30/22 10/30/22 History [Prostate Health Caplet] Vit C/E/Zn/Coppr/Lutein/Zeaxan 1 cap PO DAILY 10/30/22 10/30/22 History [Preservision Areds 2 Softgel] Allergies Allergy/AdvReac Type Severity Reaction Status Date / Time No Known Allergies Allergy Verified 10/30/22 11:08 Physical Exam Vitals: Vital Signs Temp Pulse Pulse Resp BP BP Pulse Ox 10/30/22 18:31 73 18 10/30/22 17:50 97.6 F 73 18 144/96 95 10/30/22 12:00 97.6 F 75 18 128/82 95 10/30/22 08:34 67 16 105/87 98 10/30/22 07:25 98.8 F 84 18 156/84 93 L 10/30/22 06:55 97.1 F L 66 18 100/76 98 Intake and Output 10/30/22 10/30/22 10/30/22 06:59 14:59 22:59 Intake Total 200 Balance 200 Intake: Oral 200 Other: Voiding Method External Catheter Weight 77.111 kg 77.111 kg Results CBC & Chem 7: 10/30/22 08:54 10/30/22 08:54 Labs: Abnormal Lab Results - Last 24 Hours (Table) 10/30/22 10/30/22 Range/Units 08:54 08:54 WBC 13.9 H (3.8-10.6) k/uL Neutrophils # 12.4 H (1.3-7.7) k/uL Lymphocytes # 0.9 L (1.0-4.8) k/uL Chloride 108 H (98-107) mmol/L Creatinine 0.56 L (0.66-1.25) mg/dL Glucose 105 H (74-99) mg/dL Total Protein 6.2 L (6.3-8.2) g/dL
[2022-10-31] MEDS: HYDROmorphone 0.5 MG/0.5 ML SYRINGE IVP PRN (04:21)
--- NOTE | 2022-10-31 07:43 | P.PN ---
Subjective Progress Note Date: 10/31/22 Patient is a 72-year-old male with known hydrocephalus status post shunt, Alzheimer's dementia, and osteoarthritis who presented to the emergency room after a fall. In the emergency room he was found to have an intertrochanteric hip fracture on the right. We were asked to consult for preoperative evaluation. Patient seen and examined at bedside. He does not verbally answer questions. He shakes is head no to pain. He does not respond verbally or physically to any other questions. Vital signs reviewed General: nontoxic, no distress, appears at stated age Cardiovascular: S1S2 reg, no murmur, positive posterior tibial pulse bilateral, Lungs: Decreased bs bilateral, no rhonchi, no rales, no accessory muscle use Abdominal: soft, nontender to palpation, no guarding, no appreciable organomegaly Ext: no gross muscle atrophy, no edema b/l lower extremities, no contractures Neuro: CN II-XI grossly intact, no focal neuro deficits Psych: Alert, oriented, appropriate affect Assessment/Plan: 72-year-old male with right hip fracture plan is for closed reduction and IM nailing today History of hydrocephalus status post shunt Alzheimer's dementia Fall - fall precautions - P/OT evaluation - not on any dementia meds due to recent falling - suggest outpatient f/u with his neurologist. - will need post-op CBC and BMP Imaging: none new Data Review: Vitals reviewed and temperature 99.5, pulse 85, respirations 15, blood pressure 133/79, O2 sat 96% on room air Thank you for allowing us to participate in the care of this pleasant patient. Do not hesitate to contact us with questions. Someone can be reached from the [facility] [place] hospitalist group all hours of the day at [phone] or via [employer]. This dictation was prepared using [employer] voice recognition software. Though every attempt is made to correct errors during dictation some may still exist. Objective - Vital Signs Vital signs: Vital Signs Temp 99.5 F 10/31/22 07:15 Pulse 85 10/31/22 07:15 Resp 15 10/31/22 07:15 BP 133/79 10/31/22 07:15 Pulse Ox 96 10/31/22 07:15 FiO2 Intake & Output 10/30/22 10/31/22 10/31/22 18:59 06:59 18:59 Intake Total 200 Balance 200 Weight 77.111 kg Intake: Oral 200 Other: Voiding Method External Catheter External Catheter # Voids 1 - Labs CBC & Chem 7: 10/30/22 08:54 10/30/22 08:54 Labs: Abnormal Lab Results - Last 24 Hours (Table) 10/30/22 10/30/22 Range/Units 08:54 08:54 WBC 13.9 H (3.8-10.6) k/uL Neutrophils # 12.4 H (1.3-7.7) k/uL Lymphocytes # 0.9 L (1.0-4.8) k/uL Chloride 108 H (98-107) mmol/L Creatinine 0.56 L (0.66-1.25) mg/dL Glucose 105 H (74-99) mg/dL Total Protein 6.2 L (6.3-8.2) g/dL
[2022-10-31] MEDS ORDERED: CHOLECALCIFEROL 25 MCG (1000 IU) TABLET PO SCH (09:00)
[2022-10-31] MEDS: LYC PO SCH (09:23)
[2022-10-31] MEDS: SAW PO SCH (09:23)
[2022-10-31] MEDS: VIT E PO SCH (09:23)
[2022-10-31] MEDS: VIT A,C & E-LUTEIN-MINERALS 1 EACH TAB PO SCH (09:23)
[2022-10-31] MEDS: [UNRECOGNIZED DRUG - OTHER] PO SCH (09:23)
[2022-10-31] MEDS: PYG PO SCH (09:23)
[2022-10-31] MEDS: BETA PO SCH (09:23)
[2022-10-31] MEDS: SOD SEL PO SCH (09:23)
[2022-10-31] MEDS ORDERED: LACTATED RINGERS 1,000 ML IV ONE ×2 (16:05→18:34)
[2022-10-31] MEDS ORDERED: DEXAMETHASONE SOD PHOSPHATE 4 MG/ML 1 ML VIAL IVP ONE (16:27)
[2022-10-31] MEDS ORDERED: ONDANSETRON 4 MG/2 ML VIAL IVP ONE (16:27)
[2022-10-31] MEDS ORDERED: NALOXONE 0.4 MG/ML 1 ML VIAL IV PRN (16:42)
[2022-10-31] MEDS ORDERED: MAGNESIUM HYDROXIDE 2,400 MG/30 ML CUP PO PRN (16:42)
[2022-10-31] MEDS ORDERED: traMADol 50 MG TAB PO PRN (16:48)
--- NOTE | 2022-10-31 17:41 | P.OP ---
Date of Procedure: 10/31/22 Preoperative Diagnosis: Closed intratrochanteric fracture of the right hip Postoperative Diagnosis: Closed intratrochanteric fracture of the right hip Procedure(s) Performed: Close reduction and intramedullary hip screw fixation of the right hip Implants: [employer] Tri[employer] Intertan nail 125, 11.5 mm x 18 cm. [employer] Intertan integrated-interlocking lag screw, 105 mm lag screw, 100 mm compression screw. [employer] L-P screw, 5.0 mm x 32.5 mm. Anesthesia: spinal Surgeon: Terrell Sawyer Tin Recovery Worker #1: Francisca Montero Estimated Blood Loss (ml): 100 Pathology: none sent Condition: stable Disposition: PACU Indications for Procedure: This is a 72-year-old male that sustained a ground-level fall at home. He fell onto his right hip and experienced a intertrochanteric fracture of his right hip. He was seen at the bedside with his present and the surgical nonsurgical treatment options were discussed at length. I recommended a close reduction and intramedullary hip screw fixation of the right hip. Informed consent was obtained. Operative Findings: The operative findings are consistent with a closed intratrochanteric fracture of the right hip Description of Procedure: The patient was seen in the preoperative area, consent was reviewed, and the operative site was marked with a skin marker. The surgical procedure was discussed at length with both the patient and the family at the bedside. All questions were answered to the best of my ability. The patient was brought to the operating room and placed on the fracture table. Anesthesia was administered by the anesthesia department. 2 g of Ancef were administered intravenously. The patient was placed supine on the fracture table with the fractured extremity in traction boot. The other extremity was placed in a well leg lee and the bony prominences were well padded. A universal timeout was then performed which confirmed the patient's name, surgical site, ALLERGIES, and consent. Fracture reduction was performed with a traction and abduction maneuver which was confirmed with fluoroscopy, both AP and lateral views.. After reduction was performed, the extremity was then prepped with ChloraPrep solution and draped in the usual sterile fashion. Utilizing fluoroscopy to identify the tip of the greater trochanter, a 3 cm longitudinal incision was made just proximal to the greater trochanter. Incision was carried through the fascia to the tip of the greater trochanter. Utilizing a curved awl, the entry point was created at the tip of the greater trochanter and centralized in the AP and lateral planes. These locations were confirmed by fluoroscopy. A guidewire was then inserted down the medullary canal. Sequentially reaming of the femur was performed to 13 mm distally and 17 mm proximally with the channel reamer. After reaming, appropriate size nail was inserted over the guidewire. The nail was inserted to the appropriate depth and the guidewire was removed. Placement of the maykel was confirmed with both AP and lateral fluoroscopic views. The lag screw drill sleeve was placed in the jig and a small skin incision was made on the lateral aspect of the leg and the lag screw drill sleeve was locked into the guide. The 3.2 mm guide pin sleeve was inserted through the lag screw drill sleeve down to bone. A 3.2 mm distally threaded guidewire was inserted through the guide pin sleeve. The guidewire was inserted in the desired position in the femoral head, both anterior and posterior. The lag screw length cage was inserted over the guidepin to the back of the lag screw drill sleeve. Lag screw length was then measured from the cage. Next, the 7.0 mm compression screw starter drill was inserted in the lag screw drill sleeve beneath the guidepin. The compression screw starter drill was advanced under power until it abutted the back and of the lag screw drill sleeve. The 7.0 mm compression screw drill was inserted through the lag screw drill sleeve into the hole created by the compression screw starter drill. This was advanced under fluoroscopy to a depth 5 mm less and the measurement taken for the guidepin. The compression screw drill was removed and the antirotation bar was inserted into the same hole. The 3.2 mm guide pin sleeve was then removed from the drill guide. The lag screw drill was then inserted to a depth that was measured by the lag screw gauge. This was done under fluoroscopy. The lag screw was inserted over the guidewire to the appropriate depth using fluoroscopy. Traction was then released. The antirotation bar was then removed and the compression screw was advanced through the lag screw drill sleeve beneath the lag screw. This was advanced to the appropriate compression was achieved. The proximal drill guide was then removed and the distal drill guide was then inserted in the jig. Skin incision was made down to bone and the distal drill guide was then placed. Distal hole was then drilled with a 4.0 mm drill and measured to the appropriate depth. Distal screw was then placed. The entire assembly was then removed and final fluoroscopic x-rays were obtained. The wounds were then irrigated copiously with saline solution. Fascia was closed with 0-Vicryl. Subcutaneous tissues were closed with 2-0 Vicryl and the skin was closed with sujey. Sterile dressings were applied. The patient was transported to the recovery room in stable condition. The cosmetic sales assistant MARICRUZ Simmons was required due the complexity of surgery the need for skilled surgical processor for positioning draping retraction and fracture reduction.
--- NOTE | 2022-10-31 18:17 | FL ---
Intraoperative/procedural fluoroscopic services were provided. Total fluoroscopy time is 27 seconds w ith a total of 2 submitted images to PACS. Please see the operative/procedural note for further detai ls. DAP: 0.6934 mGym2
--- NOTE | 2022-10-31 18:44 | XR ---
EXAMINATION TYPE: XR Hip Limited RT DATE OF EXAM: 10/31/2022 6:14 PM INDICATION: Patient age:Male; 72 years old; Reason for study: Status post hip surgery, assess surgical alignment; PHH. COMPARISON: None. TECHNIQUE: The right hip was examined in the frontal projections FINDINGS: Post fixation changes, hardware is intact, alignment is appropriate. No evidence of fractur e. Postoperative changes of the soft tissues with subcutaneous gas. No evidence of any new acute osse ous pathology or joint dislocation. IMPRESSION: Fixation changes of the right proximal femur with hardware in appropriate alignment. No new acute fra cture.
[2022-10-31] MEDS: SODIUM CHLORIDE 0.9% 1,000 ML IV SCH (18:58)
[2022-10-31] MEDS: traMADol 50 MG TAB PO PRN (21:27)
[2022-10-31] MEDS: SENNOSIDES-DOCUSATE SODIUM 1 EACH TAB PO SCH (21:27)
[2022-10-31] MEDS ORDERED: VANCOMYCIN 125 MG CAPSULE PO SCH (22:00)
[2022-11-01] MEDS: traMADol 50 MG TAB PO PRN (05:31)
[2022-11-01 07:22] LABS: Basophils % (A) 0 %; Eosinophils % (A) 0 %; HCT 43.4 % (39.0-53.0); HGB 14.6 gm/dL (13.0-17.5); Lymphocytes # (A) 0.6 k/uL (1.0-4.8); Lymphocytes % (A) 6 %; MCH 32.6 pg (25.0-35.0); MCHC 33.7 g/dL (31.0-37.0); MCV 96.7 fL (80.0-100.0); Mean Platelet Volume 8.5; Monocytes # (A) 0.5 k/uL (0-1.0); Monocytes % (A) 5 %; Neutrophils # (A) 9.6 k/uL (1.3-7.7); Neutrophils % (A) 89 %; Platelet Count 148 k/uL (150-450); RBC 4.49 m/uL (4.30-5.90); RDW 12.5 % (11.5-15.5); WBC 10.8 k/uL (3.8-10.6)
[2022-11-01 07:26] LABS: African American GFR (CKD) >90 (>60 ml/min/1.73 sqM); Anion Gap 9 mmol/L; Blood Urea Nitrogen 10 mg/dL (9-20); Calcium 8.6 mg/dL (8.4-10.2); Carbon Dioxide 24 mmol/L (22-30); Chloride 103 mmol/L (98-107); Glucose 116 mg/dL (74-99); Non-African American GFR(CKD) >90 (>60 ml/min/1.73 sqM); Potassium 4.3 mmol/L (3.5-5.1); Sodium 136 mmol/L (137-145)
[2022-11-01] MEDS: SODIUM CHLORIDE 0.9% 1,000 ML IV SCH ×2 (08:41→20:19)
[2022-11-01] MEDS: RIVAROXABAN 10 MG TAB PO SCH (08:41)
[2022-11-01] MEDS: VIT A,C & E-LUTEIN-MINERALS 1 EACH TAB PO SCH (08:42)
[2022-11-01] MEDS: SAW PO SCH (08:43)
[2022-11-01] MEDS: [UNRECOGNIZED DRUG - OTHER] PO SCH (08:43)
[2022-11-01] MEDS: BETA PO SCH (08:43)
[2022-11-01] MEDS: VIT E PO SCH (08:43)
[2022-11-01] MEDS: SOD SEL PO SCH (08:43)
[2022-11-01] MEDS: PYG PO SCH (08:43)
[2022-11-01] MEDS: LYC PO SCH (08:43)
--- NOTE | 2022-11-01 10:26 | P.PN ---
Subjective Progress Note Date: 11/01/22 This is a 72-year-old male who is status post closed reduction and intramedullary hip screw fixation of the right hip. This is postoperative day #1 and patient is seen and evaluated at bedside today. Patient is confused and a poor historian. No family present in the room today. No acute events overnight reported. Objective - Vital Signs Vital signs: Vital Signs Temp 98.4 F 11/01/22 07:10 Pulse 55 L 11/01/22 07:10 Resp 17 11/01/22 07:10 BP 99/65 11/01/22 07:10 Pulse Ox 93 L 11/01/22 07:10 FiO2 Intake & Output 10/31/22 11/01/22 11/01/22 18:59 06:59 18:59 Intake Total 950 570 Output Total 910 750 Balance 40 -750 570 Weight 77.111 kg Intake: IV 950 Intake, IV Titration 570 Amount Sodium Chloride 0.9% 1, 520 000 ml @ 65 mls/hr IV . [id number] [facility] Rx#:[id number] ceFAZolin 2 gm In Sodium 50 Chloride 0.9% 50 ml @ 100 mls/hr IVPB Q8HR [facility] Rx# :[id number] Output: Urine 810 750 Estimated Blood Loss 100 Other: Voiding Method External Catheter Indwelling Catheter - Exam Vital signs are stable. Patient is in no acute distress and is pleasantly confused. Calf is soft and nontender to palpation. Dressing is clean, dry, and intact. Sensation intact. Neurovascular status and circulatory status are intact. - Labs CBC & Chem 7: 11/01/22 05:37 11/01/22 05:37 Labs: Abnormal Lab Results - Last 24 Hours (Table) 11/01/22 11/01/22 Range/Units 05:37 05:37 WBC 10.8 H (3.8-10.6) k/uL Plt Count 148 L (150-450) k/uL Neutrophils # 9.6 H (1.3-7.7) k/uL Lymphocytes # 0.6 L (1.0-4.8) k/uL Sodium 136 L (137-145) mmol/L Creatinine 0.52 L (0.66-1.25) mg/dL Glucose 116 H (74-99) mg/dL Assessment and Plan Assessment: Status post closed reduction and intramedullary hip screw fixation of the right hip. (1) Alzheimer's dementia Current Visit: Yes Status: Acute Code(s): G30.9 - ALZHEIMER'S DISEASE, UNSPECIFIED; F02.80 - DEM IN OTH DIS CLASSD ELSWHR,UNSP SEV,W/O BEH/PSYCH/MOOD/ANX SNOMED Code(s): 57462976 (2) Fracture, intertrochanteric, right femur Current Visit: Yes Status: Acute Code(s): S72.141A - DISPLACED INTERTROCHANT YOUNG FRACTURE OF RIGHT FEMUR, INIT SNOMED Code(s): 025527512 Plan: Continue routine postop care and pain control. Continue anticoagulation with Xarelto. Weightbearing as tolerated with a walker. Leave dressing in place for 7 days. Appreciate input from medicine. Anticipate discharge to [facility] in the next 24-48 hours.
--- NOTE | 2022-11-01 17:04 | P.PN ---
Subjective Progress Note Date: 11/01/22 Hospital course: Patient is a 72-year-old male with known hydrocephalus status post shunt, Alzheimer's dementia, and osteoarthritis. He presented to the emergency department on 10/30/22 status post fall at home resulting in right hip pain. Patient underwent full evaluation in the emergency department. CT head completed negative for acute intercranial process showing shunt catheter with apparent treated hydrocephalus with no suspicious rounding of the temporal horns at this time findings reported to appear to have slight improvement when compared to CT completed on 08/15/21. CT cervical spine negative for acute osseous abnormality showing degenerative changes with foraminal stenosis and loss of disc height C5 through C6 and C6 through C7. EKG was completed showing normal sinus rhythm at 63 bpm with a right bundle branch block which is unchanged with the exception of rate when compared to EKG completed 08/15/21. Chest x-ray negative for acute cardiopulmonary process. X-rays were completed of pelvis, hip, and right femur and patient was found to have an intertrochante adrienne fracture of his right hip. Patient was admitted under orthopedic surgery team and we were consulted for medical management throughout his hospitalization. Physical exam: Patient seen and examined at bedside. Patient sleeping at time of assessment, but easily awoken via verbal stimuli. He did not verbally answer questions, but did shake his head denying any complaints of pain or discomfort at this time. Lincoln catheter remains in place. Patient appeared comfortable showing no signs of acute distress at this time. Vital signs reviewed, blood pressure soft 99/65, heart rate 55, respiratory rate 17, and SpO2 of 93% on room air with temp 98.4F. General: non toxic, no distress, appears at stated age Derm: warm, dry Head: atraumatic, normocephalic, symmetric Eyes: EOMI, no lid lag, anicteric sclera Mouth: no lip lesion, mucus membranes moist Cardiovascular: S1S2 reg, no murmur, positive posterior tibial pulse bilateral, Lungs: CTA bilateral, no rhonchi, no rales , no accessory muscle use Abdominal: soft, nontender to palpation, no guarding, no appreciable organomegaly Ext: no gross muscle atrophy, no edema, no contractures Neuro: CN II-XI grossly intact, no focal neuro deficits Psych: Alert, nonverbal which is reported baseline, appropriate affect Assessment and plan of care: Right intertrochanteric hip fracture Fall at home -Status post closed reduction and intramedullary hip screw fixation of the right hip on 10/31/22 secondary to intertrochanteric fracture of right hip -Management per primary admitting orthopedic surgery team including DVT prophylaxis, pain management, wound/dressing care, weightbearing, and PT/OT. -DVT prophylaxis currently with Xarelto 10 mg daily. History of hydrocephalus status post shunt Alzheimer's dementia Fall -Continue fall precautions -PT/OT following recommending subacute rehab upon discharge to increase functional mobility. - not on any dementia meds due to recent falling -Recommend outpatient follow-up with neurologist for reevaluation and management of dementia medications -Morning labs reviewed. CBC showing mild leukocytosis with WBC count of 10.8 and thrombocytopenia with platelet count of 148. BMP revealing sodium 136 and glucose of 116. -Vital signs reviewed. Blood pressure soft 99/65, heart rate 55, respiratory rate 17, and SpO2 of 93% on room air with temp 98.4F. Thank you for allowing us to participate in the care of this pleasant patient. Do not hesitate to contact us with questions. Someone can be reached from the [facility] hospitalist group all hours of the day at [phone] or via [employer]. This dictation was prepared using [employer] voice recognition software. Though every attempt is made to correct errors during dictation some may still exist. Patient was seen independently by Nurse Pracitioner. This document was prepared using [employer] dictation software. Please allow for errors in gift manager, while rare they do occur. Objective - Vital Signs Vital signs: Vital Signs Temp 98.4 F 11/01/22 07:10 Pulse 55 L 11/01/22 07:10 Resp 17 11/01/22 07:10 BP 99/65 11/01/22 07:10 Pulse Ox 93 L 11/01/22 07:10 FiO2 Intake & Output 10/31/22 11/01/22 11/01/22 18:59 06:59 18:59 Intake Total 950 Output Total 910 750 Balance 40 -750 Weight 77.111 kg Intake: IV 950 Output: Urine 810 750 Estimated Blood Loss 100 Other: Voiding Method External Catheter Indwelling Catheter - Labs CBC & Chem 7: 11/01/22 05:37 11/01/22 05:37 Labs: Abnormal Lab Results - Last 24 Hours (Table) 11/01/22 11/01/22 Range/Units 05:37 05:37 WBC 10.8 H (3.8-10.6) k/uL Plt Count 148 L (150-450) k/uL Neutrophils # 9.6 H (1.3-7.7) k/uL Lymphocytes # 0.6 L (1.0-4.8) k/uL Sodium 136 L (137-145) mmol/L Creatinine 0.52 L (0.66-1.25) mg/dL Glucose 116 H (74-99) mg/dL
[2022-11-01] MEDS: SENNOSIDES-DOCUSATE SODIUM 1 EACH TAB PO SCH (20:16)
--- NOTE | 2022-11-02 07:29 | P.PN ---
Subjective Progress Note Date: 11/02/22 Principal diagnosis: Right hip fracture. Status post IT nail insertion right hip. This is a 72-year-old male who is status post closed reduction and intramedullar y hip screw fixation of the right hip. This is postoperative day #2 and patient is seen and evaluated at bedside today. Patient is confused and a poor historian. No family present in the room today. No acute events overnight reported. Objective - Vital Signs Vital signs: Vital Signs Temp 98.6 F 11/02/22 07:19 Pulse 87 11/02/22 07:19 Resp 16 11/02/22 07:19 BP 123/79 11/02/22 07:19 Pulse Ox 91 L 11/02/22 07:19 FiO2 Intake & Output 11/01/22 11/02/22 11/02/22 18:59 06:59 18:59 Intake Total 570 Output Total 210 400 Balance 360 -400 Intake: Intake, IV Titration 570 Amount Sodium Chloride 0.9% 1, 520 000 ml @ 65 mls/hr IV . [id number] [facility] Rx#:[id number] ceFAZolin 2 gm In Sodium 50 Chloride 0.9% 50 ml @ 100 mls/hr IVPB Q8HR [facility] Rx# :[id number] Output: Urine 210 400 Other: Voiding Method Indwelling Catheter - Exam This is a 72-year-old male in no acute distress. He is alert with some confusion. Exam of the right hip reveals that his dressing is clean, dry and intact. He has full foot and ankle motion without difficulty or pain. Neuro vascular status to the lower extremity is intact. - Labs CBC & Chem 7: 11/01/22 05:37 11/01/22 05:37 Assessment and Plan (1) Alzheimer's dementia Current Visit: Yes Status: Acute Code(s): G30.9 - ALZHEIMER'S DISEASE, UNSPECIFIED; F02.80 - DEM IN OTH DIS CLASSD ELSWHR,UNSP SEV,W/O BEH/PSYCH/MOOD/ANX SNOMED Code(s): 14465344 (2) Fracture, intertrochanteric, right femur Current Visit: Yes Status: Acute Code(s): S72.141A - DISPLACED INTERTROCHANTERIC FRACTURE OF RIGHT FEMUR, INIT SNOMED Code(s): 499947113 Plan: The clinical findings are discussed with the patient. We're waiting inpatient rehab. He may be discharged when cleared medically.
[2022-11-02] MEDS: RIVAROXABAN 10 MG TAB PO SCH (08:56)
[2022-11-02] MEDS: SAW PO SCH (08:57)
[2022-11-02] MEDS: PYG PO SCH (08:57)
[2022-11-02] MEDS: VIT A,C & E-LUTEIN-MINERALS 1 EACH TAB PO SCH (08:57)
[2022-11-02] MEDS: VIT E PO SCH (08:57)
[2022-11-02] MEDS: SOD SEL PO SCH (08:57)
[2022-11-02] MEDS: LYC PO SCH (08:57)
[2022-11-02] MEDS: BETA PO SCH (08:57)
[2022-11-02] MEDS: [UNRECOGNIZED DRUG - OTHER] PO SCH (08:57)
[2022-11-02] MEDS: SODIUM CHLORIDE 0.9% 1,000 ML IV SCH (15:09)
--- NOTE | 2022-11-02 18:38 | P.PN ---
Subjective Progress Note Date: 11/02/22 Hospital course: Patient is a 72-year-old male with known hydrocephalus status post shunt, Alzheimer's dementia, and osteoarthritis. He presented to the emergency department on 10/30/22 status post fall at home resulting in right hip pain. Patient underwent full evaluation in the emergency department. CT head completed negative for acute intercranial process showing shunt catheter with apparent treated hydrocephalus with no suspicious rounding of the temporal horns at this time findings reported to appear to have slight improvement when compared to CT completed on 08/15/21. CT cervical spine negative for acute osseous abnormality showing degenerative changes with foraminal stenosis and loss of disc height C5 through C6 and C6 through C7. EKG was completed showing normal sinus rhythm at 63 bpm with a right bundle branch block which is unchanged with the exception of rate when compared to EKG completed 08/15/21. Chest x-ray negative for acute cardiopulmonary process. X-rays were completed of pelvis, hip, and right femur and patient was found to have an intertrochante adrienne fracture of his right hip. Patient was admitted under orthopedic surgery team and we were consulted for medical management throughout his hospitalization. Physical exam: Patient seen and examined at bedside. Patient appears to be in an upbeat mood this morning with visiting at bedside, patient saying select words and following some commands. Patient wiggling feet and toes without any difficulties. Denied any pain. Vital signs reviewed, blood pressure soft 99/65, heart rate 55, respiratory rate 17, and SpO2 of 93% on room air with temp 98.4F. General: non toxic, no distress, appears at stated age Derm: warm, dry Head: atraumatic, normocephalic, symmetric Eyes: EOMI, no lid lag, anicteric sclera Mouth: no lip lesion, mucus membranes moist Cardiovascular: S1S2 reg, no murmur, positive posterior tibial pulse bilateral, Lungs: CTA bilateral, no rhonchi, no rales , no accessory muscle use Abdominal: soft, nontender to palpation, no guarding, no appreciable organomegaly Ext: no gross muscle atrophy, no edema, no contractures Neuro: CN II-XI grossly intact, no focal neuro deficits Psych: Alert and talkative this morning. Patient a appeared to be an upbeat mood this morning saying select words and following some commands. Patient wiggling feet and toes without any difficulties. Denied any pain. Assessment and plan of care: Right intertrochanteric hip fracture Fall at home -Status post closed reduction and intramedullary hip screw fixation of the right hip on 10/31/22 secondary to intertrochanteric fracture of right hip -Management per primary admitting orthopedic surgery team including DVT prophylaxis, pain management, wound/dressing care, weightbearing, and PT/OT. -DVT prophylaxis currently with Xarelto 10 mg daily. History of hydrocephalus status post shunt Alzheimer's dementia Fall -Continue fall precautions -PT/OT following recommending subacute rehab upon discharge to increase functional mobility. - not on any dementia meds due to recent falling -Recommend outpatient follow-up with neurologist for reevaluation and management of dementia medications -Vital signs reviewed. Blood pressure 123/79, heart rate 87, respiratory rate 16, temp 98.6F and SpO2 of 91% on room air. Medically, patient is stable for discharge once cleared by primary admitting orthopedic surgery team. Thank you for allowing us to participate in the care of this pleasant patient. Do not hesitate to contact us with questions. Someone can be reached from the [facility] hospitalist group all hours of the day at [phone] or via [employer]. This dictation was prepared using ipvive voice recognition software. Though every attempt is made to correct errors during dictation some may still exist. Patient was seen independently by Nurse Pracitioner. This document was prepared using [employer] dictation software. Please allow for errors in hot sealing machine operator, while rare they do occur. Objective - Vital Signs Vital signs: Vital Signs Temp 98.6 F 11/02/22 07:19 Pulse 87 11/02/22 07:19 Resp 16 11/02/22 07:19 BP 123/79 11/02/22 07:19 Pulse Ox 91 L 11/02/22 07:19 FiO2 Intake & Output 11/01/22 11/02/22 11/02/22 18:59 06:59 18:59 Intake Total 570 Output Total 210 400 Balance 360 -400 Intake: Intake, IV Titration 570 Amount Sodium Chloride 0.9% 1, 520 000 ml @ 65 mls/hr IV . [id number] [facility] Rx#:[id number] ceFAZolin 2 gm In Sodium 50 Chloride 0.9% 50 ml @ 100 mls/hr IVPB Q8HR [facility] Rx# :[id number] Output: Urine 210 400 Other: Voiding Method Indwelling Catheter - Labs CBC & Chem 7: 11/01/22 05:37 11/01/22 05:37
[2022-11-02] MEDS: SENNOSIDES-DOCUSATE SODIUM 1 EACH TAB PO SCH (20:09)
[2022-11-02] MEDS: traMADol 50 MG TAB PO PRN (20:34)
[2022-11-03] MEDS: SODIUM CHLORIDE 0.9% 1,000 ML IV SCH (06:22)
[2022-11-03] MEDS: RIVAROXABAN 10 MG TAB PO SCH (08:23)
[2022-11-03] MEDS: VIT A,C & E-LUTEIN-MINERALS 1 EACH TAB PO SCH (08:24)
[2022-11-03] MEDS: LYC PO SCH (08:29)
[2022-11-03] MEDS: PYG PO SCH (08:29)
[2022-11-03] MEDS: [UNRECOGNIZED DRUG - OTHER] PO SCH (08:29)
[2022-11-03] MEDS: SOD SEL PO SCH (08:29)
[2022-11-03] MEDS: SAW PO SCH (08:29)
[2022-11-03] MEDS: BETA PO SCH (08:29)
[2022-11-03] MEDS: VIT E PO SCH (08:29)
[2022-11-03 11:52] LABS: Basophils # (A) 0.03 X 10*3/uL (0.00-0.10); Basophils % (A) 0.5 %; Eosinophils # (A) 0.46 X 10*3/uL (0.04-0.35); Eosinophils % (A) 7.1 %; HCT 35.2 % (39.6-50.0); HGB 11.5 d/dL (12.0-15.0); Lymphocytes % (A) 15.5 %; MCH 31.9 pg (27.0-32.0); MCHC 32.7 d/dL (32.0-37.0); MCV 97.5 FL (80.0-97.0); Mean Platelet Volume 11.1 FL (9.5-12.2); Monocytes # (A) 0.69 X 10*3/uL (0.20-1.00); Monocytes % (A) 10.7 %; NRBC Per 100 WBC 0 X 10*3/uL (0.00-0.01); Neutrophils # (A) 4.25 X 10*3/uL (1.80-7.70); Platelet Count 126 X 10*3/uL (140-440); RBC 3.61 X 10*6/uL (4.40-5.60); RDW 12.4 % (11.5-14.5); WBC 6.44 X 10*3/uL (4.50-10.00)
--- NOTE | 2022-11-03 12:12 | P.DS ---
Providers Date of admission: 10/30/22 08:27 Expected date of discharge: 11/03/22 Attending physician: Terrell Sawyer Consults: 10/30/22 08:15 Consult Physician Urgent Consulting Provider: Bc Child Consult Reason/Comments: Medical management Do you want consulting provider notified?: Yes Primary care physician: Ras Ames - Discharge Diagnosis(es) (1) Alzheimer's dementia Current Visit: Yes Status: Acute (2) Fracture, intertrochanteric, right femur Current Visit: Yes Status: Acute Hospital Course: This is an 72-year-old male who sustained a fracture of his right hip after a fall home on 10/30/2022. The patient presented for evaluation in the emergency room. After discussion and consideration the patient's family elects to proceed with closed reduction and intramedullary hip screw fixation of the right hip. The patient is seen preoperatively by Dr. Sawyer and medically cleared for surgery by internal medicine. Patient is admitted to [facility] on 10/30/2022 and closed reduction and intramedullary hip screw fixation of the right hip is performed on 10/31/2022. The procedure is performed without complication or sequelae. The patient is doing well postoperatively. Labs and vital signs are stable on day of discharge. On day of discharge patient's hip incision is healing well. There is minimal erythema. There is no drainage noted at this time. There is minimal soft tissue swelling to the hip and thigh. Patient has full foot and ankle motion without difficulty or pain. Calf is soft and nontender to palpation. Neurovascular status to the right lower extremity is intact. Patient is discharged to rehab in good condition. Please see med rec for accurate list of home medications. Plan - Discharge Summary Discharge Rx Participant: Yes New Discharge Prescriptions: New Sennosides [Senokot] 2 tab PO DAILY PRN #60 tablet PRN Reason: Constipation traMADol HCl [Ultram] 1 - 2 tab PO Q6H PRN #32 tab PRN Reason: Pain Rivaroxaban [Xarelto] 10 mg PO DAILY #35 tab No Action Cholecalciferol [Vitamin D3 (25 Mcg = 1000 Iu)] 25 mcg PO MO Saw/Vit E/Sod [place]ir[place]/Lyc/Beta/Pyg [Prostate Health Caplet] 1 tab PO DAILY Vit C/E/Zn/Coppr/Lutein/Zeaxan [Preservision Areds 2 Softgel] 1 cap PO DAILY Discharge Medication List Cholecalciferol [Vitamin D3 (25 Mcg = 1000 Iu)] 25 mcg PO MO 05/13/21 [History] Saw/Vit E/Sod Amirah/Lyc/Beta/Pyg [Prostate Health Caplet] 1 tab PO DAILY 10/30/22 [History] Vit C/E/Zn/Coppr/Lutein/Zeaxan [Preservision Areds 2 Softgel] 1 cap PO DAILY 10/30/22 [History] Rivaroxaban [Xarelto] 10 mg PO DAILY #35 tab 10/31/22 [Rx] Sennosides [Senokot] 2 tab PO DAILY PRN #60 tablet 10/31/22 [Rx] traMADol HCl [Ultram] 1 - 2 tab PO Q6H PRN #32 tab 10/31/22 [Rx] Follow up Appointment(s)/Referral(s): Ras Ames MD [Primary Care Provider] - 1-2 days Terrell Sawyer DO [Doctor of Osteopathic Medicine] - 11/11/22 9:00 am (Please call office prior to appointment to pre register) Patient Instructions/Handouts: Intramedullary Nailing (DC) Activity/Diet/Wound Care/Special Instructions: Weightbearing as tolerated with walker. Leave dressing intact. Dressing may be removed by home care nurse or by patient in 7 days. Then change dressing twice daily until follow up. May shower with initial dressing intact and after removal. If dressing become saturated, please remove. [place] to be removed in 10-14 days. Please take Xarelto for one month postoperatively to help prevent blood clots. Recommend use of compression stockings daily until follow up to help prevent swelling and blood clots. May remove at night before sleeping. Please follow-up with [facility] in 2 weeks and call with any questions or concerns, . Discharge Disposition: TRANSFER TO SNF/ECF
[2022-11-03] MEDS ORDERED: TAMSULOSIN 0.4 MG CAP.ER.24H PO SCH (13:00)
--- NOTE | 2022-11-03 14:19 | P.PN ---
Subjective Progress Note Date: 11/03/22 Hospital course: Patient is a 72-year-old male with known hydrocephalus status post shunt, Alzheimer's dementia, and osteoarthritis. He presented to the emergency department on 10/30/22 status post fall at home resulting in right hip pain. Patient underwent full evaluation in the emergency department. CT head completed negative for acute intercranial process showing shunt catheter with apparent treated hydrocephalus with no suspicious rounding of the temporal horns at this time findings reported to appear to have slight improvement when compared to CT completed on 08/15/21. CT cervical spine negative for acute osseous abnormality showing degenerative changes with foraminal stenosis and loss of disc height C5 through C6 and C6 through C7. EKG was completed showing normal sinus rhythm at 63 bpm with a right bundle branch block which is unchanged with the exception of rate when compared to EKG completed 08/15/21. Chest x-ray negative for acute cardiopulmonary process. X-rays were completed of pelvis, hip, and right femur and patient was found to have an intertrochante adrienne fracture of his right hip. Patient was admitted under orthopedic surgery team and we were consulted for medical management throughout his hospitalization. Physical exam: Patient seen and examined at bedside. Patient even more talkative this morning, fed himself breakfast and ate well. Patient denies any pain. Reports feeling good. Vital signs reviewed and stable. Blood pressure 125/84, heart rate 76, respiratory rate 19, pulse ox 93% on room air, and temp 98.0F. General: non toxic, no distress, appears at stated age Derm: warm, dry Head: atraumatic, normocephalic, symmetric Eyes: EOMI, no lid lag, anicteric sclera Mouth: no lip lesion, mucus membranes moist Cardiovascular: S1S2 reg, no murmur, positive posterior tibial pulses palpated bilaterally, Lungs: CTA bilateral, no rhonchi, no rales , no accessory muscle use Abdominal: soft, nontender to palpation, no guarding, no appreciable organomegaly Ext: no gross muscle atrophy, no edema, no contractures Neuro: CN II-XI grossly intact, no focal neuro deficits noted. Psych: Patient again Alert and talkative this morning. Patient again appears to be doing well this morning. Assessment and plan of care: Right intertrochanteric hip fracture Fall at home -Status post closed reduction and intramedullary hip screw fixation of the right hip on 10/31/22 secondary to intertrochanteric fracture of right hip -Management per primary admitting orthopedic surgery team including DVT prophylaxis, pain management, wound/dressing care, weightbearing, and PT/OT. -DVT prophylaxis currently with Xarelto 10 mg daily. -Followed up on morning labs. CBC stable with hemoglobin of 11.5 and platelet count of 126. Postoperative urinary retention. -Lincoln catheter was removed yesterday, patient has required straight catheterization 3 attempts per RN. Patient unable to void independently and continues to retain. Order placed for Flomax 0.4 mg daily and for reinsertion of Lincoln catheter. -Patient may be discharged to care home facility with Lincoln catheter in place and follow up outpatient for voiding challenge after taking Flomax for a few days. History of hydrocephalus status post shunt Alzheimer's dementia Fall -Continue fall precautions -PT/OT following recommending subacute rehab upon discharge to increase funct ional mobility. - not on any dementia meds due to recent falling -Recommend outpatient follow-up with neurologist for reevaluation and management of dementia medications -Vital signs reviewed and stable . Blood pressure 125/84, heart rate 76, respiratory rate 19, pulse ox 93% on room air, and temp 98.0F. Medically, patient is stable for discharge once cleared by primary admitting orthopedic surgery team no further recommendations at this time. Discharge instructions updated the patient is being discharged with Lincoln catheter in place and will need to follow up outpatient with urologist to repeat voiding challenge. It is also recommended that patient follow up outpatient with neurologist for reevaluation and management of dementia medications. Thank you for allowing us to participate in the care of this pleasant patient. Do not hesitate to contact us with questions. Someone can be reached from the [facility] hospitalist group all hours of the day at [phone] or via [employer]. This dictation was prepared using Stripe voice recognition software. Though every attempt is made to correct errors during dictation some may still exist. Patient was seen independently by Nurse Pracitioner. This document was prepared using [employer] dictation software. Please allow for errors in diabetes territory manager, while rare they do occur. Objective - Vital Signs Vital signs: Vital Signs Temp 98.0 F 11/03/22 06:53 Pulse 76 11/03/22 06:53 Resp 19 11/03/22 06:53 BP 125/84 11/03/22 06:53 Pulse Ox 93 L 11/03/22 06:53 FiO2 Intake & Output 11/02/22 11/03/22 11/03/22 18:59 06:59 18:59 Intake Total 520 Output Total 825 Balance -305 Intake: Intake, IV Titration 520 Amount Sodium Chloride 0.9% 1, 520 000 ml @ 65 mls/hr IV . [id number] [facility] Rx#:[id number] Output: Urine 825 Other: Voiding Method Indwelling Catheter Diaper # Voids 0 - Labs CBC & Chem 7: 11/03/22 06:47 11/01/22 05:37
[2022-11-03 14:35] VITALS: BP 130/74; PULSE 83; RESP 18; TEMP 98.7
== END 2022-11-03 17:25 | DRG 481 ==
LOC: EC 06:52 → 4SSUR 08:27
PROVIDERS: ADMIT Orthopaedic Surgery; ATTEND Orthopaedic Surgery
PROC: 0QS636Z Reposition Right Upper Femur with Intramedullary Internal Fixation Device, Percutaneous Approach (ICD-10-PCS; principal; 2022-10-31 10:25)
DX: S72.141A Displaced intertrochanteric fracture of right femur, initial encounter for closed fracture (principal); G91.9 Hydrocephalus, unspecified; F02.80 Dementia in other diseases classified elsewhere, unspecified severity, without behavioral disturbance, psychotic disturbance, mood disturbance, and anxiety; G30.9 Alzheimer's disease, unspecified; N99.89 Other postprocedural complications and disorders of genitourinary system; R33.8 Other retention of urine; W19.XXXA Unspecified fall, initial encounter; M19.90 Unspecified osteoarthritis, unspecified site; I45.10 Unspecified right bundle-branch block; M48.02 Spinal stenosis, cervical region; W18.30XA Fall on same level, unspecified, initial encounter; Y92.009 Unspecified place in unspecified non-institutional (private) residence as the place of occurrence of the external cause; Z79.899 Other long term (current) drug therapy; Z98.2 Presence of cerebrospinal fluid drainage device
CPT/HCPCS: 51701; 70450; 71045; 72125; 72170; 73501; 73502; 80048; 80053; 85025; 85610; 85730; 93005; 94760; 96374; 99285

== ENCOUNTER 2023-01-26 08:05 | Emergency (ER) | payer MEDICARE ==
--- NOTE | 2023-01-26 09:05 | XR ---
EXAMINATION TYPE: XR AP view pelvis and 2 views left hip DATE OF EXAM: 01/26/2023 Comparison: None Clinical History: 72-year-old male fall, hip pain Findings: Suspect a DIRECTOR OF SCOUT WORK shunt catheter looping in the pelvis. Left-sided pelvic phlebolith. Partially visualized antegrade intramedullary nail with screw fixation on the right. There is an impacted transcervical l eft femoral neck fracture with superior and anterior displacement of approximately 1.7 cm. Impression: Impacted and mildly displaced transcervical left femoral neck fracture.
[2023-01-26] MEDS ORDERED: fentaNYL (PF) 50 MCG/ML 2 ML AMP IVP STA (09:36)
--- NOTE | 2023-01-26 09:37 | ED ---
Fall HPI - General Chief Complaint: Fall Stated Complaint: Fall Time Seen by Provider: 01/26/23 08:10 Source: EMS Mode of arrival: EMS - History of Present Illness Initial Comments: 72-year-old male with past medical history of Alzheimer's dementia who presents to the emergency department from [facility]. Patient is a resident on the memory care unit. He woke up this morning and was attempting to ambulate as he doesn't like to wander. Patient was found in between his bed and a wall. The patient had a hematoma to the back of his head. He cannot convey much information but they did identify that he was having left hip pain. He has previously fallen and required a right hip replacement. They state he is normally a and O to self. He arrives in the same condition. He does not currently take any blood thinners. Patient not visibly bothered by any neck pain. No chest pain or difficulty breathing. HPI is limited due to patient's current condition - Related Data Home Medications Medication Instructions Recorded Confirmed ALPRAZolam [Xanax] 0.5 mg PO Q8H PRN 01/26/23 01/26/23 Cholecalciferol [Vitamin D3 (125 125 mcg PO DAILY@0800 01/26/23 01/26/23 Mcg = 5000 Iu)] Divalproex Sprinkle [Depakote 125 mg PO TID@0800,1400,2100 01/26/23 01/26/23 Sprinkle] Ensure Enlive 237 ml PO BID@0800,1700 01/26/23 01/26/23 Magnesium Hydroxide [Milk of 7,200 mg PO DAILY PRN 01/26/23 01/26/23 Magnesia Concentrate] Melatonin 5 mg PO HS 01/26/23 01/26/23 Na Phos,M-B/Na Phos,Di-Ba [Fleet 133 ml RECTAL DAILY PRN 01/26/23 01/26/23 Adult] Ocular Vitamin 1 tab PO DAILY@1700 01/26/23 01/26/23 Sennosides/Docusate Sodium [Senna 1 tab PO BID@0800,1700 01/26/23 01/26/23 Plus 8.6-50 mg Tablet] Tamsulosin [Flomax] 0.4 mg PO DAILY@0800 01/26/23 01/26/23 bisacodyL [Dulcolax] 10 mg RECTAL DAILY PRN 01/26/23 01/26/23 traMADol HCl [Ultram] 50 mg PO Q6H PRN 01/26/23 01/26/23 traMADol HCl [Ultram] 100 mg PO Q6H PRN 01/26/23 01/26/23 Previous Rx's Medication Instructions Recorded Acetaminophen Tab [Tylenol] 650 mg PO Q6HR PRN tab 11/03/22 Allergies Allergy/AdvReac Type Severity Reaction Status Date / Time No Known Allergies Allergy Verified 01/26/23 09:54 Review of Systems ROS Statement: Those systems with pertinent positive or pertinent negative responses have been documented in the HPI. ROS Other: All systems not noted in ROS Statement are negative. Past Medical History Past Medical History: Dementia, Memory Impairment Additional Past Medical History / Comment(s): Alzheimers History of Any Multi-Drug Resistant Organisms: None Reported Past Surgical History: Orthopedic Surgery Additional Past Surgical History / Comment(s): BILAT SHOULDER SX. COLONOSCOPY/EGD Past Anesthesia/Blood Transfusion Reactions: No Reported Reaction Past Psychological History: No Psychological Hx Reported Smoking Status: Never smoker Past Alcohol Use History: Occasional Past Drug Use History: None Reported - Past Family History Mother Family Medical History: No Reported History, Unable to Obtain (due to mental status) General Exam Limitations: altered mental status General appearance: alert Head exam: Present: normocephalic, other (Hematoma left occiput, 2 cm) Eye exam: Present: normal appearance, PERRL, EOMI. Absent: scleral icterus, conjunctival injection, periorbital swelling ENT exam: Present: normal exam, mucous membranes moist Neck exam: Present: normal inspection. Absent: tenderness, meningismus, lymphadenopathy Respiratory exam: Present: normal lung sounds bilaterally. Absent: respiratory distress, wheezes, rales, rhonchi, stridor Cardiovascular Exam: Present: regular rate, normal rhythm, normal heart sounds. Absent: systolic murmur, diastolic murmur, rubs, gallop, clicks GI/Abdominal exam: Present: soft, normal bowel sounds. Absent: distended, tenderness, guarding, rebound, rigid Extremities exam: Present: tenderness (To palpation of the left hip), normal capillary refill. Absent: pedal edema, joint swelling, calf tenderness Back exam: Present: normal inspection Neurological exam: Present: alert, CN II-XII intact Psychiatric exam: Present: agitated Skin exam: Present: warm, dry, intact, normal color. Absent: rash Course Vital Signs 01/26/23 01/26/23 08:06 10:20 Temperature 100.0 F H 99.8 F H Pulse Rate 78 99 Respiratory 18 20 Rate Blood Pressure 117/89 156/99 O2 Sat by Pulse 94 L 98 Oximetry - Reevaluation(s) Reevaluation #1: Due to patient's agitated state with unknown reaction to the medications we do await 's approval for pain medication. agreeable to pain meds at this time 01/26/23 09:37 Medical Decision Making - Medical Decision Making Was pt. sent in by a medical professional or institution ([facility], [employer], urgent care, hospital, or assisted...) When [facility] be [facility] Did you speak to anyone other than the patient for history (EMS, parent, family, police, friend...)? What history was obtained from this source @ -I spoke with EMS and the Did you review nursing and triage notes (agree or disagree)? Why? @ -I reviewed and agree with nursing and triage notes Were old charts reviewed (outside hosp., previous admission, EMS record, old EKG, old radiological studies, urgent care reports/EKG's, assisted records)? Report findings @ -Old charts were reviewed. Patient had previous hip replacement in October of this year from a fall Differential Diagnosis (chest pain, altered mental status, abdominal pain women, abdominal pain men, vaginal bleeding, weakness, fever, dyspnea, syncope, headache, dizziness, GI bleed, back pain, seizure, CVA, palpatations, mental health, musculoskeletal)? @ -Differential Musculoskeletal Muscular strain, contusion, ligament sprain, fracture, arthritis, septic arthritis, bursitis, cellulitis, muscle spasm, nerve compression, DVT, arterial occlusion, herpes zoster, electrolyte abnormality, tumor.... This is not meant to be in all inclusive list EKG interpreted by me (3pts min.). @ -Yes and demonstrates sinus rhythm with rate of 79. MT interval of 172. QRS 129. QTC of 417. No acute ST segment elevations or depressions X-rays interpreted by me (1pt min.). @ -Yes and demonstrates a left hip fracture CT interpreted by me (1pt min.). @ -Yes and demonstrates a left-sided subdural U/S interpreted by me (1pt. min.). @ -None done What testing was considered but not performed or refused? (CT, X-rays, U/S, labs)? Why? @ -None What meds were considered but not given or refused? Why? @ -None Did you discuss the management of the patient with other professionals (professionals i.e. Dr., PA, [employer], lab, RT, psych nurse, social media executive, jewelry cutter, teacher, personal banking officer, case management director)? Give summary @ -Spoke with Dr. Ashby at [facility] who accepts transfer Was smoking cessation discussed for >3mins.? @ -No Was critical care preformed (if so, how long)? @ -Yes, 35 minutes Were there social determinants of health that impacted care today? How? (Homelessness, low income, unemployed, alcoholism, drug addiction, transportation, low edu. Level, literacy, decrease access to med. care, prison, rehab)? @ -No Was there de-escalation of care discussed even if they declined (Discuss DNR or withdrawal of care, Hospice)? DNR status @ -No What co-morbidities impacted this encounter? (DM, HTN, Smoking, COPD, CAD, Cancer, CVA, ARF, Chemo, Hep., AIDS, mental health diagnosis, sleep apnea, morbid obesity)? @ -Alzheimer's dementia Was patient admitted / discharged? Hospital course, mention meds given and route, prescriptions, significant lab abnormalities, going to OR and other pertinent info. @ -Upon arrival patient is placed into room 2. A thorough physical exam was performed. Patient does appear distressed when I press on his left hip. He does have a scalp hematoma. He is sent for a CT of his head as well as a x-ray of his hips. X-ray of the hip does demonstrate a left femoral neck fracture. CT the brain demonstrates a left sided subdural. Patient appears to be at his neurologic baseline. He recommended transfer for neurosurgery and orthopedic trauma. Called and spoke with Dr. Ashby at [facility] who does accept the patient Undiagnosed new problem with uncertain prognosis? @ -yes Drug Therapy requiring intensive monitoring for toxicity (Heparin, Nitro, Insulin, Cardizem)? @ -No Were any procedures done? @ -No Diagnosis/symptom? @ -Acute fall, blunt head trauma, left subdural hematoma, left femoral neck fracture Acute, or Chronic, or Acute on Chronic? @ -Acute Uncomplicated (without systemic symptoms) or Complicated (systemic symptoms)? @ -Complicated Side effects of treatment? @ -No Exacerbation, Progression, or Severe Exacerbation? @ -No Poses a threat to life or bodily function? How? (Chest pain, USA, NC, pneumonia, PE, COPD, DKA, ARF, appy, cholecystitis, CVA, Diverticulitis, Homicidal, Suicidal, threat to staff... and all critical care pts) @ -Yes patient has a brain bleed - Lab Data Result diagrams: 01/26/23 09:45 01/26/23 09:45 Lab Results 01/26/23 01/26/23 01/26/23 Range/Units 09:45 09:45 09:45 WBC 8.6 (3.8-10.6) k/uL RBC 4.72 (4.30-5.90) m/uL Hgb 14.7 (13.0-17.5) gm/dL Hct 44.9 (39.0-53.0) % MCV 95.2 (80.0-100.0) fL MCH 31.2 (25.0-35.0) pg MCHC 32.7 (31.0-37.0) g/dL RDW 13.5 (11.5-15.5) % Plt Count 233 (150-450) k/uL MPV 9.8 Neutrophils % 70 % Lymphocytes % 19 % Monocytes % 7 % Eosinophils % 3 % Basophils % 0 % Neutrophils # 6.0 (1.3-7.7) k/uL Lymphocytes # 1.6 (1.0-4.8) k/uL Monocytes # 0.6 (0-1.0) k/uL Eosinophils # 0.3 (0-0.7) k/uL Basophils # 0.0 (0-0.2) k/uL PT 10.2 (9.0-12.0) sec INR 1.0 (<1.2) APTT 24.7 (22.0-30.0) sec Sodium 140 (137-145) mmol/L Potassium 4.5 (3.5-5.1) mmol/L Chloride 106 (98-107) mmol/L Carbon Dioxide 27 (22-30) mmol/L Anion Gap 7 mmol/L BUN 12 (9-20) mg/dL Creatinine 0.56 L (0.66-1.25) mg/dL Est GFR (CKD-EPI)AfAm >90 (>60 ml/min/1.73 sqM) Est GFR (CKD-EPI)NonAf >90 (>60 ml/min/1.73 sqM) Glucose 104 H (74-99) mg/dL Calcium 9.0 (8.4-10.2) mg/dL Total Bilirubin 0.6 (0.2-1.3) mg/dL AST 45 (17-59) U/L ALT 60 H (4-49) U/L Alkaline Phosphatase 101 (38-126) U/L Troponin I (0.000-0.034) ng/mL Total Protein 6.3 (6.3-8.2) g/dL Albumin 3.7 (3.5-5.0) g/dL Blood Type Blood Type Confirm Blood Type Recheck Bld Type Recheck Status Antibody Screen Spec Expiration Date 01/26/23 01/26/23 01/26/23 Range/Units 09:45 09:45 10:00 WBC (3.8-10.6) k/uL RBC (4.30-5.90) m/uL Hgb (13.0-17.5) gm/dL Hct (39.0-53.0) % MCV (80.0-100.0) fL MCH (25.0-35.0) pg MCHC (31.0-37.0) g/dL RDW (11.5-15.5) % Plt Count (150-450) k/uL MPV Neutrophils % % Lymphocytes % % Monocytes % % Eosinophils % % Basophils % % Neutrophils # (1.3-7.7) k/uL Lymphocytes # (1.0-4.8) k/uL Monocytes # (0-1.0) k/uL Eosinophils # (0-0.7) k/uL Basophils # (0-0.2) k/uL PT (9.0-12.0) sec INR (<1.2) APTT (22.0-30.0) sec Sodium (137-145) mmol/L Potassium (3.5-5.1) mmol/L Chloride (98-107) mmol/L Carbon Dioxide (22-30) mmol/L Anion Gap mmol/L BUN (9-20) mg/dL Creatinine (0.66-1.25) mg/dL Est GFR (CKD-EPI)AfAm (>60 ml/min/1.73 sqM) Est GFR (CKD-EPI)NonAf (>60 ml/min/1.73 sqM) Glucose (74-99) mg/dL Calcium (8.4-10.2) mg/dL Total Bilirubin (0.2-1.3) mg/dL AST (17-59) U/L ALT (4-49) U/L Alkaline Phosphatase (38-126) U/L Troponin I <0.012 (0.000-0.034) ng/mL Total Protein (6.3-8.2) g/dL Albumin (3.5-5.0) g/dL Blood Type O Negative Blood Type Confirm O Negative Blood Type Recheck No Previous Record Bld Type Recheck Status CABO Indicated Antibody Screen NEGATIVE Spec Expiration Date 01/29/20232344 Disposition Clinical Impression: Fall, Subdural hematoma, Alzheimer's dementia Disposition: OTHER INSTITUTION NOT DEFINED Condition: Serious Is patient prescribed a controlled substance at d/c from ED?: No Referrals: Ollie Mercedes DO [Family Provider] - 1-2 days Time of Disposition: 09:57 - Out of Hospital Transfer - Req. Specs Out of Hospital Transfer - Requested Specifics: Other Emergency Center ([facility])
--- NOTE | 2023-01-26 10:03 | XR ---
EXAMINATION TYPE: XR chest 1V portable DATE OF EXAM: 01/26/2023 Comparison: 10/30/2022 Clinical History: 72-year-old male trauma Findings: Right-sided [employer] shunt catheter. Heart mildly enlarged. Calcified mediastinal and right hilar lymph nod es compatible prior granulomatous disease. Low lung volumes and cardiovascular markings. There is carolynn e increased patchy opacity at the left base. Mild interstitial prominence throughout. Old fracture de formity right mid clavicular shaft. Impression: 1. Mild cardiomegaly and evidence of prior granulomatous disease. 2. Diffuse interstitial prominence is new but the appearance may be due to hypoventilatory changes. C orrelate to exclude mild pulmonary vascular congestion. 3. Patchy atelectasis versus early infiltrate at the left base.
--- NOTE | 2023-01-26 10:23 | CT ---
EXAMINATION TYPE: CT brain cspine wo con CT DLP: 1899.5 mGycm, Automated exposure control for dose reduction was used. DATE OF EXAM: 01/26/2023 8:13 AM COMPARISON: CT brain C-spine 10/30/2022. CLINICAL INDICATION:Male, 72 years old with history of fall, head injury; Fall today, hit head, no LO C. Hx dementia TECHNIQUE: Brain: Multiple axial CT images of the brain were obtained without IV contrast. Cspine: Axial CT images from the skull base to the inferior aspect of T2 we obtained without intraven ous contrast. Coronal and sagittal reformatted images were also reviewed. FINDINGS: Brain: Extra-axial spaces: Left convexity mixed density extra-axial fluid collection with a maximum thicknes s of 7 mm. This courses over the left frontal, parietal, and temporal lobes. Ventricular system: Right parietal approach [employer] shunt catheter distal tip terminating in the body of t he right lateral ventricle. Stable prominence of the ventricular system. Visualized catheter appears intact. Cerebral parenchyma: Cerebral atrophy. No acute intraparenchymal hemorrhage. The kiser-white junction is well differentiated. Scattered hypoattenuating areas are seen within the white matter. Cerebellum: Unremarkable. Mass effect: No evidence of midline shift. Intracranial vasculature: Atherosclerotic calcifications of the intracranial vessels. Soft tissues: Normal. Calvarium/osseous structures: No depressed skull fracture. Paranasal sinuses and mastoid air cells: Clear. Visualized orbits: Orbital contents are intact. Cervical spine: Fracture: No acute fracture. Remote injury to the right clavicle. Osseous structures: Multilevel degenerative disc disease changes with endplate spurring and disc oste ophyte complex's. Multilevel facet arthropathy. Vertebral alignment: Within normal limits. Spinal canal/Neural Foramina: Disc osteophyte complexes at C5-C6 and C6-C7 with at least mild spinal canal stenosis. Facet joint uncovertebral joint arthropathy scattered throughout the cervical spine w ith varying degrees of neural foraminal stenosis. Neck soft tissues: Prevertebral soft tissues are within normal limits. Other: The airway is patent. Biapical pleural-parenchymal scarring. Mediastinal and hilar calcified l ymph nodes. IMPRESSION: 1. Acute left subdural hematoma. No midline shift. 2. Nonspecific white matter changes, likely secondary to chronic small vessel ischemic disease. 3. Stable prominence of the ventricular system with right parietal approach [employer] shunt catheter. 4. No evidence of cervical spine fracture. 5. Mild multilevel degenerative disc disease. 6. Sequelae of prior granulomatous disease. Findings called to and discussed with Dr. Sanchez at 9:30 AM on 01/26/2023.
[2023-01-26 10:30] VITALS: BP 156/99; PULSE 99; RESP 20; TEMP 99.8
[2023-01-26 10:43] LABS: Partial Thromboplastin Time 24.7 sec (22.0-30.0); Prothrombin Time 10.2 sec (9.0-12.0)
[2023-01-26 10:45] LABS: ALT 60 U/L (4-49); AST 45 U/L (17-59); African American GFR (CKD) >90 (>60 ml/min/1.73 sqM); Albumin 3.7 g/dL (3.5-5.0); Alkaline Phosphatase 101 U/L (38-126); Anion Gap 7 mmol/L; Blood Urea Nitrogen 12 mg/dL (9-20); Carbon Dioxide 27 mmol/L (22-30); Chloride 106 mmol/L (98-107); Glucose 104 mg/dL (74-99); Non-African American GFR(CKD) >90 (>60 ml/min/1.73 sqM); Potassium 4.5 mmol/L (3.5-5.1); Sodium 140 mmol/L (137-145); Total Bilirubin 0.6 mg/dL (0.2-1.3); Total Protein 6.3 g/dL (6.3-8.2)
[2023-01-26 10:56] LABS: Basophils % (A) 0 %; Eosinophils # (A) 0.3 k/uL (0-0.7); Eosinophils % (A) 3 %; HCT 44.9 % (39.0-53.0); HGB 14.7 gm/dL (13.0-17.5); Lymphocytes # (A) 1.6 k/uL (1.0-4.8); Lymphocytes % (A) 19 %; MCH 31.2 pg (25.0-35.0); MCHC 32.7 g/dL (31.0-37.0); MCV 95.2 fL (80.0-100.0); Mean Platelet Volume 9.8; Monocytes # (A) 0.6 k/uL (0-1.0); Monocytes % (A) 7 %; Neutrophils % (A) 70 %; Platelet Count 233 k/uL (150-450); RBC 4.72 m/uL (4.30-5.90); RDW 13.5 % (11.5-15.5); WBC 8.6 k/uL (3.8-10.6)
== END 2023-01-26 10:21 | disposition other institution (70) ==
LOC: EC 08:05
DX: S06.5X0A Traumatic subdural hemorrhage without loss of consciousness, initial encounter (principal); G30.9 Alzheimer's disease, unspecified; F02.80 Dementia in other diseases classified elsewhere, unspecified severity, without behavioral disturbance, psychotic disturbance, mood disturbance, and anxiety; W19.XXXA Unspecified fall, initial encounter
CPT/HCPCS: 93005; 86900; 86901; 36415; 80053; 84484; 85025; 85610; 85730; 86850; 73502; 71045; 72125; 70450; 99285; 96374; J3010